=== PATIENT | female | born 1980 | race Caucasian/White ===

== ENCOUNTER 2018-01-13 14:28 | Outpatient (CLI) | payer OTHER ==
--- NOTE | 2018-01-13 16:30 | ULT ---
SONOGRAM RENAL TRANSPLANT WITH DUPLEX EVALUATION: Date: 01/13/18 HISTORY: Renal transplant. Abnormal lab values. FINDINGS: Sonographic evaluation of the transplanted kidney show it to measure 12.3 cm with mild distention of the calices. No evidence of mass or perinephric fluid collection. Good color and spectral Doppler flow within the aorta and renal artery. Peak systolic velocity 1.49 meters/second. Resistive index associated with the arcuate arteries is 0.6. Urinary bladder is incompletely distended, with a volume of 49 mL. IMPRESSION: Normal sonographic appearance of the transplanted kidney. No significant abnormalities are demonstrat ed. POS: [facility]
== END 2018-01-13 14:29 | disposition home or self-care (01) ==
LOC: BICULT 14:28
PROVIDERS: ATTEND Internal Medicine Nephrology
DX: Z48.22 Encounter for aftercare following kidney transplant (principal)
CPT/HCPCS: 76775

== ENCOUNTER 2018-02-02 19:04 | Inpatient (IN) | payer OTHER ==
[2018-02-02] MEDS ORDERED: Pantoprazole 40 MG VIAL ONE (20:10)
[2018-02-02] MEDS ORDERED: Dicyclomine 20 MG TAB ONE (20:10)
[2018-02-02] MEDS ORDERED: Ondansetron PF 4 MG/2 ML Vial ONE (20:10)
[2018-02-02 20:36] LABS: #Basophils 0.1 thou/uL (0.0-0.2); #Eosinphils 0.1 thou/uL (0.0-0.7); #Lymphocytes 1.2 thou/uL (1.20-3.40); #Monocytes 0.5 thou/uL (0.11-0.59); #Neutrophils 7.5 thou/uL (1.40-6.50); %Basophils 0.8 % (0.0-1.0); %Lymphocytes 13.2 % (21.0-51.0); Hemoglobin 9.7 g/dL (12.0-16.0); Mean Corpuscular HGB CONC 33.3 g/dL (32.0-36.0); Mean Corpuscular Hemoglobin 27.5 pg (27.0-31.0); Mean Corpuscular Volume 82.6 fL (78.0-98.0); Mean Platelet Volume 7.6 fL (7.4-10.4); Platelet Count 413 thou/uL (130-400); RBC Distribution Width 11.8 % (11.5-14.5); Red Blood Cell (RBC) Count 3.54 mill/uL (4.20-5.40); White Blood Cell (WBC) Count 9.4 thou/uL (4.8-10.8)
[2018-02-02 20:39] LABS: BHCG - Serum Negative (NEGATIVE); Pregs Control Background? CLEAR/WHITE (CLR/WHITE); Pregs Control Bar Appear? YES (CONTROL BAR)
[2018-02-02 20:55] LABS: ALT (SGPT) Less than 7 U/L (8-55); AST (SGOT) 12 U/L (5-34); Albumin 4.2 g/dL (3.5-5.0); Alkaline Phosphatase 85 U/L (40-150); Anion Gap 16 mmol/L (10-20); BUN (Urea Nitrogen) 21 mg/dL (7.0-18.7); Bilirubin, Total 0.4 mg/dL (0.2-1.2); Calc. Creatinine Clearance 0 mL/min (70-130); Calcium 9.2 mg/dL (7.8-10.44); Carbon Dioxide 17 mmol/L (22-29); Chloride 92 mmol/L (98-107); Estimated GFR-MDRD 17; Globulin 3.1 g/dL (2.4-3.5); Glucose 100 mg/dL (70-105); Potassium 3.1 mmol/L (3.5-5.1); Protein, Total 7.3 g/dL (6.0-8.3); Sodium 122 mmol/L (136-145)
[2018-02-02 21:35] LABS: Bilirubin Negative (Negative); Blood, Urine Trace (Negative); Clarity CLOUDY (Clear); Glucose, Urine (Dipstick) Negative (Negative); Leukocyte Large (Negative); Nitrite Negative (Negative); Protein, Urine (Dipstick) Negative (Neg-Trace); Specific Gravity, Urine 1.006 (1.002-1.036); Urobilinogen 0.2 mg/dL (0.2-1.0); pH, Urine 5.5 (5.0-9.0)
[2018-02-02 21:36] LABS: Bacteria/HPF None Seen HPF (None Seen); Hyaline Casts/LPF 0-3 HYALINE CAST LPF (0-3 Hyaline); Pathc Cast-AUWi Flag 0.14 (0-2.49); Squamous Epithelial 0-3 HPF (0-3); WBC/HPF 21-50 HPF (0-3)
--- NOTE | 2018-02-02 22:25 | CT ---
NONCONTRAST CT ABDOMEN AND PELVIS: 02/02/18 HISTORY: Abdominal pain and chest pain. History of lupus. Patient complains of abdominal distention. COMPARISON: Contrasted study on 11/19/09. FINDINGS: The [place] kidneys are atrophic bilaterally with punctate nonobstructing calculus in the [place] right kidney with associated symmetric bilateral perinephric stranding. There is a transplant kidney seen within the right lower quadrant and right pelvis. No hydronephrosis is seen involving the right pelvi c kidney. The lung bases are clear. There is mild herniation of fat at the posterior right hemidiaphragm. Lack of intravenous contrast limits sensitivity for evaluation of the parenchymal organs. However, th e liver, spleen, pancreas, bilateral adrenals glands, urinary bladder, and uterus demonstrate a gross ly normal nonenhanced CT appearance. The appendix is visualized and filled with gas and increased density material but is normal in calibe r without periappendiceal inflammatory changes present. The thickening involving gastric wall and wal ls of the small bowel have resolved from the prior study in 2009. Osseous structures are intact. IMPRESSION: 1. Grossly normal nonenhanced appearance of a transplant kidney in the right lower quadrant/pelv is without hydronephrosis. Atrophic [place] bilateral kidneys with punctate nonobstructing right nativ e renal calculus. 2. No CT evidence of appendicitis. 3. No acute findings are seen on this nonenhanced CT scan of the abdomen and pelvis. 4. Vascular calcifications in the abdominal aorta. POS: [facility]
[2018-02-02] MEDS ORDERED: cefTRIAXone\\ROCEPHIN 2 GM VIAL ONE (22:33)
[2018-02-03] MEDS ORDERED: Ondansetron PF 4 MG/2 ML Vial IVP PRN (01:07)
[2018-02-03] MEDS: Sodium Chloride 0.9% 1,000 ML IV SCH ×2 (01:10→11:52)
[2018-02-03] MEDS: Nicotine 14 MG PATCH TD SCH ×2 (01:10→21:31)
[2018-02-03] MEDS ORDERED: Potassium Chloride 20 MEQ TAB PO SCH (01:15)
[2018-02-03 01:23] VITALS: BMI 18.4
--- NOTE | 2018-02-03 01:23 | HP ---
DATE OF SERVICE: 02/02/2018 PRIMARY CARE PHYSICIAN: None. CHIEF COMPLAINT: Vomiting and diarrhea. HISTORY OF PRESENT ILLNESS: Ms. Purvis is a pleasant 37-year-old lady who was seen at [facility] on 02/02/2018. She has a history of renal transplant in 2011 in [place], because of lupus. She is followed by Dr. Olson from Nephrology. She reports that over the last month, she has been having nausea, vomiting, and diarrhea. She reports that she is nauseous on a daily basis but vomits a few every 4 days or so. She reports ongoing diarrhea. She reports that the last time, she ate a full meal was towards the end of November. She denies any chest pain. She denies any abdominal pain. She denies any fevers. She came to the emergency room, because of ongoing nausea, vomiting , and diarrhea. REVIEW OF SYSTEMS: All other systems reviewed and found to be negative. PAST MEDICAL HISTORY: Lupus, chronic renal failure, and hypertension. PAST SURGICAL HISTORY: Renal transplant. FAMILY HISTORY: No family history of lupus. SOCIAL HISTORY: Patient smokes half a pack of cigarettes a day. She denies alcohol use or recreational drug use. ALLERGIES: PENICILLIN, she reports hives with PENICILLIN. CURRENT MEDICATIONS: Prograf 3 mg b.i.d., CellCept 500 mg 2 times a day, Zoloft 100 mg daily, pravastatin 10 mg daily, Plaquenil 200 mg 2 times a day, and metoprolol tartrate 12.5 mg 2 times a day. PHYSICAL EXAMINATION: GENERAL: Ms. Purvis is awake and alert, not in acute distress. VITAL SIGNS: Blood pressure is 112/75, pulse 78, respiratory rate 18, and oxygen saturation 99% on room air. She is afebrile. She appears frail, weighs 49 kilograms. EYES: No scleral icterus. No conjunctival pallor. ENT: Dry mucosal membranes, no oropharyngeal erythema or exudates. NECK: Supple, nontender. Trachea is midline. RESPIRATORY: Accessory muscles of breathing are not active. Chest wall movements are symmetric bilaterally. Lungs are clear to auscultation without wheeze, rhonchi, or crepitations. CARDIOVASCULAR: S1 and S2 are heard, regular. Peripheral pulses palpable. No carotid bruit, no pericardial rub. ABDOMEN: Soft, nontender, bowel sounds heard, no hepatomegaly, no splenomegaly. NEUROLOGIC: Cranial nerves II through XII intact. Deep tendon reflexes 2+. MUSCULOSKELETAL: Power is 5/5 in all 4 extremities. SKIN: No rashes or subcutaneous nodules. LYMPHATIC: No cervical lymphadenopathy. PSYCHIATRIC: Normal mood, normal affect, patient is oriented to person, place, and time. DATABASE: Ms. Purvis's labs and investigations were reviewed. She had CT scan of the abdomen and pelvis without contrast, which showed grossly normal nonenhanced appearance of transplanted kidney in the right lower quadrant/ pelvis without hydronephrosis. She had punctate nonobstructing right [place] renal calculus. There was no CT evidence of appendicitis. She has vascular calcifications in the abdominal aorta. She has normal white count, normocytic anemia with hemoglobin 9.7, last known hemoglobin 12.2 on 11/30/2017, elevated platelet count of 413,000, up from 395,000 on 11/30/2017, decreased sodium of 122, decreased potassium of 3.1, decreased carbon dioxide of 17, normal anion gap of 16, elevated blood urea nitrogen of 21, elevated creatinine of 3.01, up from 1.78 on 01/10/2018 and an unremarkable liver profile. Serum test is negative. Urinalysis is positive for blood, large amount of leukocyte esterase, and urine wbcs 21-50 per high power field. ASSESSMENT AND PLAN: Ms. Purvis is a pleasant 37-year-old lady who was seen at [facility] on 02/03/2018. Her problem list includes: 1. Acute on chronic stage 3 renal failure: Ms. Purvis is presenting with acute on chronic, stage 3 renal failure, most likely prerenal given her history of nausea, vomiting, and diarrhea. She will be admitted to the hospital for further management. She will be started on intravenous fluids. Nephrology service will be consulted. 2. Nausea and vomiting: Patient reports that prior to the onset of the symptoms, she and her family members at all suffered some form of flu-like illness with nausea, vomiting, and diarrhea. Other family members recovered, but she has not recovered so far. We will start her on p.r.n. antiemetics. We will consult GI Service for opinion and help with management. 3. Diarrhea: We will send stool studies to rule out infection. I will provide intravenous hydration. 4. Hyponatremia: Etiology unclear, we will provide intravenous fluids and recheck her sodium level. 5. Hypokalemia: Replace potassium and recheck. 6. History of renal transplant: Resume home medications once clarified. 7. Urinary tract infection: Patient has received ceftriaxone in the emergency room, we will continue ceftriaxone and follow urine cultures. LEVEL OF RISK: High. LEVEL OF COMPLEXITY: High. MTDD
[2018-02-03] MEDS ORDERED: Ondansetron ODT 4 MG TAB PO PRN (01:27)
[2018-02-03 05:58] LABS: #Eosinphils 0.1 thou/uL (0.0-0.7); #Lymphocytes 0.8 thou/uL (1.20-3.40); #Monocytes 0.5 thou/uL (0.11-0.59); #Neutrophils 6.2 thou/uL (1.40-6.50); %Basophils 0.2 % (0.0-1.0); %Eosinophils 1.3 % (0.0-10.0); %Monocytes 6.2 % (0.0-10.0); %Neutrophils 81.3 % (42.0-75.0); Hemoglobin 8.3 g/dL (12.0-16.0); Mean Corpuscular HGB CONC 32.9 g/dL (32.0-36.0); Mean Corpuscular Hemoglobin 27.4 pg (27.0-31.0); Mean Platelet Volume 7.5 fL (7.4-10.4); Platelet Count 348 thou/uL (130-400); RBC Distribution Width 11.6 % (11.5-14.5); Red Blood Cell (RBC) Count 3.04 mill/uL (4.20-5.40); White Blood Cell (WBC) Count 7.6 thou/uL (4.8-10.8)
[2018-02-03 06:24] LABS: Anion Gap 12 mmol/L (10-20); BUN (Urea Nitrogen) 17 mg/dL (7.0-18.7); Calc. Creatinine Clearance 24 mL/min (70-130); Calcium 8.4 mg/dL (7.8-10.44); Carbon Dioxide 18 mmol/L (22-29); Chloride 102 mmol/L (98-107); Estimated GFR-MDRD 23; Glucose 95 mg/dL (70-105); Potassium 3.8 mmol/L (3.5-5.1); Sodium 128 mmol/L (136-145)
[2018-02-03] MEDS: Mycophenolate 250 MG CAP PO SCH ×2 (08:43→21:07)
[2018-02-03] MEDS: Hydroxychloroquine Sulfate 200 MG TAB PO SCH (08:43)
[2018-02-03] MEDS: Tacrolimus 1 MG CAP PO SCH ×2 (08:44→21:05)
[2018-02-03] MEDS ORDERED: Prevnar 13-Val Conj/PF 0.5 ML SYRINGE IM ONE (09:00)
[2018-02-03] MEDS ORDERED: Heparin 5,000 UNITS/ML VIAL SC SCH (09:00)
--- NOTE | 2018-02-03 12:01 | CON ---
DATE OF CONSULTATION: 02/03/2018 HISTORY OF PRESENT ILLNESS: Ms. Purvis is a 37-year-old white female with known history of lupus, st atus post living related renal transplant and admitted for nausea and vomiting. She has had signific ant weight loss. She was also found to be in acute kidney injury with a creatinine of 3.0. Empiric volume repletion was done and overnight it improved her creatinine to 2.4. She has been evaluated at the [facility] and I feel that the elevated creatinine is not related to any rejection. The patie nt has also had a BK virus done, which was negative. Furthermore, the renal ultrasound allograft was said to be within normal. REVIEW OF SYSTEMS: Positive for weight loss. Positive for nausea, positive for vomiting. Positive for diarrhea. No abdominal pain, no fever or chills, no allograft tenderness, no hematochezia, no me esvin, no dysuria, no urinary frequency, no shortness of breath, no chest pain. MEDICATIONS: The patient is currently on heparin 5000 units subcu t.i.d., ceftriaxone 1 gram IV suzi y, Plaquenil 200 mg once a day, Toprol-XL 50 mg daily, CellCept 750 mg p.o. b.i.d., Zofran 4 mg p.o. b.i.d., normal saline 100 mL per hour, Prograf 2 mg q.a.m. and 1 mg q.p.m. PAST MEDICAL HISTORY: 1. History of lupus. 2. Status post end-stage renal disease - whether was in maintenance hemodialysis. 3. Hypertension. PAST SURGICAL HISTORY: 1. Status post living related renal transplant. 2. Status post AV fistula placement. 3. Status post cuffed hemodialysis catheter placement. SOCIAL HISTORY: The patient works as a nurse in the PACU. She smokes about half a pack a day. No a lcohol, no IV drug abuse. Status post blood transfusion. Education, nursing school. , lives in [place]. ALLERGIES: PENICILLIN. TRAUMA: None. IMMUNIZATIONS: Up to date. HOSPITALIZATIONS: Please see past medical history. PHYSICAL EXAMINATION: VITAL SIGNS: Blood pressure is noted at 94/53, heart rate 65, respiratory rate 13, temperature 98.2, pulse ox 98%. GENERAL: Noted to be awake, alert, supine, comfortable. SKIN: Decreased turgor. HEENT: She has slightly pale conjunctivae, anicteric sclerae. NECK: No neck mass, no carotid bruits, no JVD. CHEST: No deformities. LUNGS: Clear breath sounds, no wheezing, no crackles. HEART: Normal sinus rhythm. No murmur, no gallops or rubs. ABDOMEN: Globular, soft, nontender. No masses. EXTREMITIES: No edema, no deformities. LABORATORY DATA: Of 02/03/2018, white count 7.6, hemoglobin 8.3, sodium 128, potassium 3.8, chloride 102, carbon dioxide 18, BUN 17, creatinine 2.4, glucose 95, calcium 8.4. On 02/02/2018, BUN 21, creatinine 3.01. On 01/10/2018, BUN 1.78. On 12/16/2017, creatinine was 1.57 . On 07/29/2017, creatinine 1.03. Prograf level of 12/28/2017 was 5.8. IMAGING: CT scan of the abdomen and pelvis shows a grossly normal appearance of the transplanted kid maya, atrophic bilateral kidneys. No CT evidence of appendicitis. No acute abnormality. ASSESSMENT AND PLAN: 1. Acute kidney injury - most likely secondary to hemodynamically mediated renal dysfunction seconda ry to her weight loss and diarrhea as well as decreased p.o. intake. Agree with empiric volume reple tion. Please note, creatinine is already improved from 3.0-2.46. Continue IV fluid. No indication for any dialysis. 2. Status post living related renal transplant, stable. We will continue current immunosuppressive regimen. No changes will be made with her current Prograf or mycophenolate. 3. Chronic diarrhea, GI consult has been done.
--- NOTE | 2018-02-03 18:56 | CON ---
DATE OF CONSULTATION: 02/03/2018 REASON FOR CONSULTATION: Chronic diarrhea and nausea and vomiting. HISTORY OF PRESENT ILLNESS: A 37-year-old known to me from a few years ago when she was treated for disseminated histoplasmosis associated with immunosuppression secondary to systemic lupus erythematosus treatment. The patient has had renal transplant since and has been on immunosuppressive medication and now has a 1 month history of diarrhea, nausea, vomiting with volume depletion. The patient has seen Dr. Mcdonald in the outpatient setting and reportedly had a positive and Norovirus and stool test. She will end up admitted because of persistence of symptoms and decreased renal allograft function. No headaches, no visual symptoms, sore throat, odynophagia, dysphagia , no cough or sputum production or chest pain, no back pain, maybe some abdominal pain, mostly in the epigastric area after eating. No joint symptoms. No skin disorder. 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 PAST SURGICAL HISTORY: Renal transplant. FAMILY HISTORY: Noncontributory. 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 Still smoking half a pack of cigarettes a day. ALLERGIES: PENICILLIN. MEDICATIONS: Ceftriaxone, hydroxychloroquine, mycophenolate, nicotine, ondansetron, sertraline, tacrolimus. PHYSICAL EXAMINATION: VITAL SIGNS: T-max 98.4, blood pressure 116/76, pulse 71, respirations 16, O2 sat 98%. GENERAL: Appears no distress, chronically ill appearing. HEENT: Ocular movements conjugate. Oral cavity moist. NECK: Supple. LUNGS: Clear to auscultation and percussion. HEART: S1, S2, regular rate. ABDOMEN: Soft, not distended or tender. No ascites. No bladder distention. EXTREMITIES: No joint inflammatory activity. NEUROLOGIC: Nonfocal including cognitive function. LABORATORY DATA: White cell count 9.4, hemoglobin 9.7, platelets 413, 80% neutrophils. Sodium 122, creatinine 3.01, potassium 3.1. Liver profile normal. Albumin 4.2. Urinalysis with large leukocyte esterase, negative cultures thus far. Two sets of blood cultures were obtained in October and shows a urine culture negative thus far. C. difficile negative. Campylobacter, Shiga toxin test negative. IMAGING STUDIES: Include abdomen and pelvis CT with grossly normal appearance of the kidney. Punctate nonobstructing calculus in the [place] kidneys, lungs are clear. The other findings were not significant in this noncontrast study. Thickening involving the gastric wall and navarro of the small bowel cleared from prior study. ASSESSMENT: Systemic lupus erythematosus, prior renal transplant and a history of histoplasmosis disseminated in the past and now with chronic diarrhea, nausea , vomiting with norovirus infection documented in the outpatient setting. DISCUSSION: Differential diagnosis includes a chronic norovirus infection which is common in immunosuppressed patients, particularly those with solid organ transplantation. Those may last for months. Alternate possibilities would include associated cytomegalovirus colitis or enteritis or other opportunistic infections. We will submit assays for repeat norovirus testing, PCR, antigen and CMV, DNA, PCR, histoplasma antigen in serum and urine cryptococcus antigen in serum. May need endoscopies. If norovirus is confirmed, then we will try po Nitazoxanide. Otherwise, we will address accordingly to the results of the above assays. MTDD
[2018-02-03] MEDS ORDERED: Loperamide HCl 2 MG CAP PO PRN (18:59)
[2018-02-03] MEDS ORDERED: Zolpidem Tartrate 5 MG TAB PO PRN (18:59)
[2018-02-03] MEDS ORDERED: Calcium Carbonate 500 MG ChewTAB PO PRN (18:59)
[2018-02-03] MEDS ORDERED: HYDROcodone/Acetaminophen 5/325 mg Tablet PO PRN (18:59)
--- NOTE | 2018-02-03 19:06 | PDOC.PN ---
- Subjective Encounter Start Date: 02/03/18 Encounter Start Time: 14:30 Patient seen and examined for AUGUSTO/N/V. Still has diarrhea. No overnight events - Objective Resuscitation Status: Resuscitation Status FULL:Full Resuscitation MAR Reviewed: Yes Vital Signs & Weight: Vital Signs (12 hours) Temp Pulse Resp BP Pulse Ox 02/03/18 16:00 97.2 F L 73 16 128/84 99 02/03/18 12:12 97.8 F 71 16 116/76 98 02/03/18 07:19 98.2 F 65 13 94/53 L 98 Weight Admit Weight 104 lb 6 oz Weight 104 lb 6 oz Result Diagrams: 02/03/18 05:39 02/03/18 05:39 Radiology Reviewed by me: Yes (CT Abd - neg) Phys Exam - Physical Examination Constitutional: NAD Respiratory: no wheezing, no rhonchi Cardiovascular: RRR, no rub Gastrointestinal: soft, non-tender, positive bowel sounds Musculoskeletal: no edema Neurological: moves all 4 limbs Dx/Plan - Plan 1. AUGUSTO on CKD 3/ Dehydration / Met acidosis Cont IVF AM labs 2. N/V/D with recent Norovirus infection Add O&P Await stool w/u 3. h/o Renal transplant Cont immunosuppressants 4. SLE Cont Plaquenil 5. Tob dep Counselled Review of Systems - Review of Systems Respiratory: negative: Cough, Dry, Shortness of Breath, Hemoptysis, SOB with Excertion, Pleuritic Pain, Sputum, Wheezing Cardiovascular: negative: chest pain, palpitations, orthopnea, paroxysmal nocturnal dyspnea, edema, light headedness, other - Medications/Allergies Allergies/Adverse Reactions: Allergies Allergy/AdvReac Type Severity Reaction Status Date / Time Penicillins Allergy Verified 02/02/18 23:29 Medications: Current Medications Acetaminophen (Tylenol) 650 mg PO Q4H PRN PRN Reason: Headache/Fever/Mild Pain (1-3) Hydrocodone Bitart/Acetaminophen ([place] 5/325) 1 tab PO Q4H PRN PRN Reason: Moderate Pain (4-6) Calcium Carbonate (Tums) 1,000 mg PO Q4H PRN PRN Reason: Heartburn or Indigestion Hydroxychloroquine Sulfate (Plaquenil) 200 mg PO DAILY [facility] Last Admin: 02/03/18 08:43 Dose: 200 mg Sodium Chloride (Normal Saline 0.9%) 1,000 mls @ 75 mls/hr IV .[id number] [facility] Last Admin: 02/03/18 11:52 Dose: 1,000 mls Loperamide HCl (Imodium) 2 mg PO PRN PRN PRN Reason: Diarrhea/Loose Stools Mycophenolate Mofetil (Cellcept) 750 mg PO BID [facility] Last Admin: 02/03/18 08:43 Dose: 750 mg Nicotine (Nicoderm Patch) 14 mg TD Q24HR [facility] Last Admin: 02/03/18 01:10 Dose: Not Given Ondansetron HCl (Zofran) 4 mg IVP Q6H PRN PRN Reason: Nausea/Vomiting Last Admin: 02/03/18 08:55 Dose: 4 mg Ondansetron HCl (Zofran Odt) 4 mg PO BID PRN PRN Reason: Nausea Sertraline HCl (Zoloft) 100 mg PO DAILY [facility] Last Admin: 02/03/18 08:43 Dose: 100 mg Tacrolimus (Prograf) 1 mg PO QPM [facility] Tacrolimus (Prograf) 2 mg PO QAM [facility] Last Admin: 02/03/18 08:44 Dose: 2 mg Zolpidem Tartrate (Ambien) 5 mg PO HSPRN PRN PRN Reason: Insomnia
--- NOTE | 2018-02-03 21:23 | CON ---
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 This all started in November when she went on a trip to [place] and had problems with nausea, vomiting, and diarrhea. Several of the people on a trip also experienced the same symptoms and they came home and actually some of the people in the ousehold developed the symptoms as well. Other family members symptoms resolved quickly. However, p ersisted for maybe a week or so and seemed to get better. However, in December, she started develop ing the same symptoms. She denies a lot of abdominal pain other than some generalized crampy discomf ort. She has had diarrhea which has had some mucus in it. No blood. Seems to be bowel in color to brown. Her emesis is mild in nature. She also experiences some swallowing difficulty. She reports she ate a steak the other day and it seemed to hang up in her esophagus. She has undergone an upper endoscopy by Dr. Mcdonald in the past which was normal. One done by Dr. Mcdonald in 2004 showed erosive es ophagitis involving the mid esophagus which was biopsied. Biopsies in the past have been negative. In 2004, biopsies showed acute ulcerative esophagitis. She was recently seen by Dr. Ada Garcia in the clinic. Those records are not presently available. She had stool studies performed and showe d a viral gastroenteritis. PAST MEDICAL HISTORY: Includes. 1. Lupus, end-stage renal disease on hemodialysis and then underwent a renal transplant and is no lo nger on dialysis. 2. Hypertension. PAST MEDICAL HISTORY: Renal transplant. MEDICATIONS: Include Zoloft 100 mg p.o. daily, Zofran 4 mg p.o. b.i.d. p.r.n., CellCept 750 mg p.o. b.i.d., metoprolol 50 mg p.o. at bedtime, Prograf 1 mg p.o. q.p.m. and 2 mg p.o. q.a.m., Plaquenil 20 0 mg p.o. daily. ALLERGIES: PENICILLIN. SOCIAL HISTORY: She does smoke occasionally. Does not drink, but rarely. FAMILY HISTORY: Negative for GI or liver disease. REVIEW OF SYSTEMS: CONSTITUTIONAL: No fever or chills. No weight loss. Positive for 10-pound weight loss. EYES: No blurred vision or double vision. ENT: No sore throat or earaches. CARDIOVASCULAR: No chest pain or palpitation. PULMONARY: No shortness of breath, cough or wheezing. GASTROINTESTINAL: See above. : No hematuria or dysuria. MUSCULOSKELETAL: No joint pain or muscle weakness. SKIN: No rashes. NEUROLOGIC: No numbness or seizure activity. PHYSICAL EXAMINATION: GENERAL: Shows a thin white female in no acute distress. VITAL SIGNS: Temperature 97.8, pulse 71, respiratory rate 16, blood pressure 116/76. HEENT: Unremarkable. NECK: Supple. CHEST: Clear. CARDIOVASCULAR: Regular rate and rhythm. ABDOMEN: Soft, nontender, without organomegaly or masses. Bowel sounds are present and normoactive. EXTREMITIES: Normal. NEUROLOGIC: Nonfocal. LABORATORY DATA: On admission shows a white blood cell count 9.4, hemoglobin 9.7, hematocrit 29.2, p latelet count 413. Chemistry shows sodium 122, potassium 3.1, chloride 92, CO2 17, BUN 21, creatinin e 3.01. Serum is negative. Urinalysis shows trace blood, large leukocyte esterase and 21- 50 WBCs. Stool for C. diff, Shigella, Campylobacter were all negative. Stool culture was negative. Abdominal and pelvic CT showed grossly normal nonenhanced appearance of the transplanted kidney. ASSESSMENT: 1. Nausea and vomiting - chronic, going on for quite some time. This is probably the reason the pat ient has dehydration and electrolyte abnormalities because she cannot keep up with fluid losses. 2. Chronic diarrhea - patient is immunocompromised and may have some atypical infection. 3. Lupus. 4. Status post renal transplant. 5. Hyponatremia and hypokalemia. RECOMMENDATIONS: 1. Stool for ova and parasites. 2. Stool for leukocytes. 3. EGD in a.m. 4. PPI. 5. Round the clock Zofran or Phenergan.
[2018-02-03] MEDS ORDERED: cefTRIAXone\\ROCEPHIN 1 GM in Sodium Chloride 0.9% 100 ML IVPB SCH (23:00)
[2018-02-04] MEDS: Sodium Chloride 0.9% 1,000 ML IV SCH ×2 (00:28→14:33)
[2018-02-04 04:59] LABS: #Eosinphils 0.1 thou/uL (0.0-0.7); #Lymphocytes 1.1 thou/uL (1.20-3.40); #Monocytes 0.4 thou/uL (0.11-0.59); #Neutrophils 5.9 thou/uL (1.40-6.50); %Basophils 0.4 % (0.0-1.0); %Lymphocytes 14.2 % (21.0-51.0); %Neutrophils 78.5 % (42.0-75.0); Hemoglobin 8.4 g/dL (12.0-16.0); Mean Corpuscular HGB CONC 32.9 g/dL (32.0-36.0); Mean Corpuscular Hemoglobin 27.4 pg (27.0-31.0); Mean Corpuscular Volume 83.4 fL (78.0-98.0); Mean Platelet Volume 7.8 fL (7.4-10.4); Platelet Count 369 thou/uL (130-400); Red Blood Cell (RBC) Count 3.06 mill/uL (4.20-5.40); White Blood Cell (WBC) Count 7.5 thou/uL (4.8-10.8)
[2018-02-04 05:09] LABS: Anion Gap 11 mmol/L (10-20); BUN (Urea Nitrogen) 11 mg/dL (7.0-18.7); Calc. Creatinine Clearance 31 mL/min (70-130); Calcium 8.6 mg/dL (7.8-10.44); Carbon Dioxide 16 mmol/L (22-29); Chloride 108 mmol/L (98-107); Estimated GFR-MDRD 31; Glucose 91 mg/dL (70-105); Potassium 3.6 mmol/L (3.5-5.1); Sodium 131 mmol/L (136-145)
[2018-02-04 05:19] LABS: Magnesium 0.9 mg/dL (1.6-2.6)
[2018-02-04] MEDS ORDERED: Magnesium 2 GM/50 ML 2 GM in Premix Bag 1 BAG IVPB SCH ×3 (05:45→14:00)
[2018-02-04] MEDS ORDERED: Midazolam HCl 2 mg/2 ml Vial ONE (07:42)
[2018-02-04] MEDS ORDERED: Benzocaine 20% Spray 60 ML CAN ONE (07:46)
[2018-02-04] MEDS ORDERED: Ondansetron HCl/PF 4 MG/2 ML Vial IVP PRN (08:55)
[2018-02-04] MEDS ORDERED: Promethazine HCl 25 MG/ML VIAL SLOW IVP PRN (08:55)
[2018-02-04] MEDS ORDERED: Promethazine HCl 25 MG/ML VIAL IM PRN (08:55)
--- NOTE | 2018-02-04 09:00 | OP ---
DATE OF PROCEDURE: 02/04/2018 PREOPERATIVE DIAGNOSIS: Persistent nausea and vomiting. DESCRIPTION OF PROCEDURE: After informed consent was obtained, the patient placed in the left latera l decubitus position. Anesthesia was administered per the Anesthesia Department. Forward-viewing en doscope was inserted into the esophagus under direct visualization with ease and passed to the second portion of the duodenum with ease. The second portion of the duodenum was normal. Duodenal bulb wa s normal. Random biopsies were taken from the second portion of the duodenum because of the patient' s persistent diarrhea. The pylorus was normal. In the prepyloric antrum, a few erosions were noted and biopsies were taken. Retroflexion in the stomach was normal. The esophagus was normal throughou t. A 54-[place] Dos Santos dilator was passed with some moderate resistance. Reinsertion showed some mi ld post-dilatation bleeding at GE junction. ASSESSMENT: 1. Esophageal stricture - status post dilatation. 2. Mild erosive antritis - status post biopsy. RECOMMENDATIONS: 1. Await histopathology. 2. Proceed with colonoscopy.
[2018-02-04] MEDS: Hydroxychloroquine Sulfate 200 MG TAB PO SCH (09:43)
[2018-02-04] MEDS: Tacrolimus 1 MG CAP PO SCH ×2 (09:43→20:40)
[2018-02-04] MEDS: Mycophenolate 250 MG CAP PO SCH ×2 (10:40→20:40)
[2018-02-04] MEDS ORDERED: PROPOFOL 200 MG/20 ML VIAL ONE (13:53)
--- NOTE | 2018-02-04 16:06 | PDOC.PN ---
- Subjective Encounter Start Date: 02/04/18 Encounter Start Time: 10:30 Patient seen and examined for AUGUSTO/N/V. No new complaints. No overnight events - Objective Resuscitation Status: Resuscitation Status FULL:Full Resuscitation MAR Reviewed: Yes Vital Signs & Weight: Vital Signs (12 hours) Temp Pulse Resp BP Pulse Ox 02/04/18 11:41 98.1 F 64 18 117/67 100 02/04/18 09:59 100 02/04/18 09:30 97.6 F 76 16 114/74 100 02/04/18 07:10 98.2 F 69 16 113/58 L 98 02/04/18 05:37 98.4 F 68 18 119/72 96 Weight Admit Weight 104 lb 6 oz Weight 104 lb 6 oz Result Diagrams: 02/04/18 04:25 02/04/18 04:25 Phys Exam - Physical Examination Constitutional: NAD Respiratory: no wheezing, no rhonchi Cardiovascular: RRR, no rub Gastrointestinal: soft, non-tender, positive bowel sounds Musculoskeletal: no edema Neurological: moves all 4 limbs Dx/Plan - Plan DVT proph w/SCDs 1. AUGUSTO on CKD 3/ Dehydration / Met acidosis - Cr improving Cont IVF AM labs 2. N/V/D with recent Norovirus infection Stool w/u neg s/p EGD Colonoscopy in AM Other testing pending 3. h/o Renal transplant Cont immunosuppressants 4. SLE Cont Plaquenil 5. Hypomagnessemia 4 gm IVPB Magnessium x 1 6. Tob dep Counselled 7. HTN Cont Toprol Laboratory Tests 02/02/18 02/03/18 02/04/18 20:22 05:39 04:25 Sodium 131 L Creatinine 3.01 H 2.40 H 1.81 H Magnesium 0.9 L* Review of Systems - Review of Systems Respiratory: negative: Cough, Dry, Shortness of Breath, Hemoptysis, SOB with Excertion, Pleuritic Pain, Sputum, Wheezing Cardiovascular: negative: chest pain, palpitations, orthopnea, paroxysmal nocturnal dyspnea, edema, light headedness, other - Medications/Allergies Allergies/Adverse Reactions: Allergies Allergy/AdvReac Type Severity Reaction Status Date / Time Penicillins Allergy Verified 02/02/18 23:29 Medications: Current Medications Acetaminophen (Tylenol) 650 mg PO Q4H PRN PRN Reason: Headache/Fever/Mild Pain (1-3) Hydrocodone Bitart/Acetaminophen ([place] 5/325) 1 tab PO Q4H PRN PRN Reason: Moderate Pain (4-6) Calcium Carbonate (Tums) 1,000 mg PO Q4H PRN PRN Reason: Heartburn or Indigestion Hydroxychloroquine Sulfate (Plaquenil) 200 mg PO DAILY [facility] Last Admin: 02/04/18 09:43 Dose: 200 mg Sodium Chloride (Normal Saline 0.9%) 1,000 mls @ 75 mls/hr IV .[id number] [facility] Last Admin: 02/04/18 14:33 Dose: 1,000 mls Loperamide HCl (Imodium) 2 mg PO PRN PRN PRN Reason: Diarrhea/Loose Stools Metoprolol Succinate (Toprol Xl) 50 mg PO HS [facility] Last Admin: 02/03/18 21:04 Dose: 50 mg Mycophenolate Mofetil (Cellcept) 750 mg PO BID [facility] Last Admin: 02/04/18 10:40 Dose: 750 mg Nicotine (Nicoderm Patch) 14 mg TD Q24HR [facility] Last Admin: 02/03/18 21:31 Dose: Not Given Ondansetron HCl (Zofran Odt) 4 mg PO BID PRN PRN Reason: Nausea Polyethylene Glycol/Electrolytes (Golytely) 4,000 ml PO 1800 [facility] Stop: 02/04/18 23:59 Sertraline HCl (Zoloft) 100 mg PO DAILY [facility] Last Admin: 02/04/18 09:43 Dose: 100 mg Tacrolimus (Prograf) 1 mg PO QPM [facility] Last Admin: 02/03/18 21:05 Dose: 1 mg Tacrolimus (Prograf) 2 mg PO QAM [facility] Last Admin: 02/04/18 09:43 Dose: 2 mg Zolpidem Tartrate (Ambien) 5 mg PO HSPRN PRN PRN Reason: Insomnia
[2018-02-04] MEDS ORDERED: GoLYTELY 4,000 ml Bottle PO SCH (18:00)
[2018-02-04] MEDS: Nicotine 14 MG PATCH TD SCH (20:42)
[2018-02-05 05:44] LABS: #Eosinphils 0.1 thou/uL (0.0-0.7); #Lymphocytes 1.3 thou/uL (1.20-3.40); #Monocytes 0.4 thou/uL (0.11-0.59); #Neutrophils 4.2 thou/uL (1.40-6.50); %Basophils 0.5 % (0.0-1.0); %Lymphocytes 21.2 % (21.0-51.0); %Monocytes 6.9 % (0.0-10.0); %Neutrophils 69.5 % (42.0-75.0); Hemoglobin 7.6 g/dL (12.0-16.0); Mean Corpuscular HGB CONC 32.7 g/dL (32.0-36.0); Mean Corpuscular Hemoglobin 27.3 pg (27.0-31.0); Mean Corpuscular Volume 83.3 fL (78.0-98.0); Mean Platelet Volume 8.3 fL (7.4-10.4); Platelet Count 347 thou/uL (130-400); RBC Distribution Width 11.8 % (11.5-14.5); White Blood Cell (WBC) Count 6.1 thou/uL (4.8-10.8)
[2018-02-05 06:05] LABS: Anion Gap 10 mmol/L (10-20); BUN (Urea Nitrogen) 6 mg/dL (7.0-18.7); Calc. Creatinine Clearance 45 mL/min (70-130); Calcium 8.7 mg/dL (7.8-10.44); Carbon Dioxide 20 mmol/L (22-29); Chloride 104 mmol/L (98-107); Estimated GFR-MDRD 47; Glucose 88 mg/dL (70-105); Magnesium 1.7 mg/dL (1.6-2.6); Phosphorus 2.5 mg/dL (2.3-4.7); Sodium 131 mmol/L (136-145)
[2018-02-05 06:10] LABS: Potassium 2.9 mmol/L (3.5-5.1)
[2018-02-05] MEDS ORDERED: NS 0.9% w/ 40 MEQ KCL 1,000 ML IV SCH ×2 (06:30→10:03)
[2018-02-05] MEDS ORDERED: Midazolam HCl 2 mg/2 ml Vial ONE (08:03)
--- NOTE | 2018-02-05 09:05 | OP ---
PREOPERATIVE DIAGNOSES: 1. Chronic diarrhea 2. Anemia. DESCRIPTION OF PROCEDURE: After informed consent was obtained, the patient was placed in the left la teral decubitus position. Anesthesia was administered per the Anesthesia Department. Forward-viewin g endoscope was inserted into the rectum after perianal inspection and rectal exam were normal and pa ssed to the cecum with ease. Cecum, ileocecal valve, and appendiceal orifice were normal. The prep was excellent. The cecum, ascending, transverse, descending, sigmoid and rectum were all normal. Re troflexion in the rectum was normal. Random biopsies were taken throughout the colon for microscopic colitis. ASSESSMENT: Normal ileal colonoscopy - status post random biopsies of the colon. RECOMMENDATIONS: 1. Trial of Imodium. 2. Await histopathology. 3. Consider adjustment of CellCept dose.
[2018-02-05] MEDS: Potassium Chloride 20 MEQ in Premix Bag 1 BAG IVPB SCH ×2 (09:14→11:47)
[2018-02-05] MEDS: Tacrolimus 1 MG CAP PO SCH ×2 (09:15→20:45)
[2018-02-05] MEDS: Hydroxychloroquine Sulfate 200 MG TAB PO SCH (09:15)
[2018-02-05] MEDS: Loperamide HCl 2 MG CAP PO SCH (09:20)
[2018-02-05] MEDS ORDERED: Potassium Chloride 10 MEQ TAB PO SCH ×2 (10:30→12:00)
[2018-02-05] MEDS ORDERED: Mycophenolate 250 MG CAP PO SCH (11:00)
[2018-02-05] MEDS: NS 0.9% w/ 20 MEQ KCL 1,000 ML/1,000 ML BAG IV SCH (11:06)
[2018-02-05] MEDS: Mycophenolate 250 MG CAP PO SCH ×2 (11:48→20:44)
--- NOTE | 2018-02-05 12:00 | PRG ---
DATE OF SERVICE: 02/05/2018 RENAL MEDICINE SUBJECTIVE: Ms. Purvis is a 37-year-old white female who was admitted for weight loss, nausea and vo miting as well as diarrhea. She has been evaluated by GI. She has undergone an upper and lower GI e ndoscopy. GI endoscopy did show some esophageal stricture and dilatation was done. She also had mil d erosive antritis. Furthermore, the colonoscopy was within normal. We are currently following this patient for her acute kidney injury that was hemodynamically mediated . She was also status post renal transplant. No new complaints today. She was noted to be hypokale gómez and potassium is being replaced. Due to the negative findings of colonoscopy, we will be decreas ing her CellCept to 500 mg b.i.d. to improve the diarrhea. No complaints of chest pain, shortness of breath. OBJECTIVE: VITAL SIGNS: Blood pressure 110/72, heart rate 58, respiratory rate 16, temperature 97.6, pulse ox 9 6%. GENERAL: Noted to be awake, alert, comfortable, not in distress. SKIN: Adequate turgor. HEENT: Slightly pale conjunctivae, anicteric sclerae. NECK: No neck mass, no carotid bruits, no JVD. CHEST: No deformities. LUNGS: Clear breath sounds. No wheezing or crackles. HEART: Normal sinus rhythm. No murmurs, no gallops, no rubs. ABDOMEN: Globular, soft, nontender, no masses. EXTREMITIES: No edema, no deformities. MEDICATIONS: Medications of 02/05/2018 was reviewed. LABORATORY DATA: Laboratories of 02/05/2018; white count 6.1, hemoglobin 7.6, hematocrit 23.3. [place] um 131, potassium 2.9, chloride 104, carbon dioxide 20, BUN 6, creatinine 1.28, glucose 88, calcium 8 .7, magnesium is 1.7. ASSESSMENT AND PLAN: 1. Acute kidney injury - hemodynamically mediated renal dysfunction. Much improved with volume repl etion. 2. Status post - living related renal transplant, stable. We will continue current immunosuppressiv e regimen except for the CellCept. We will decrease it from 720 twice a day to 500 mg b.i.d. due to diarrhea and possible CellCept induced anemia. 3. Hypomagnesemia, much improved. Most recent magnesium is 1.7. 4. Nausea and vomiting/diarrhea clinically improved. Status post endoscopy. GI following. Recheck base met and CBC in a.m.
[2018-02-05] MEDS: Potassium Chloride 10 MEQ TAB PO SCH ×2 (13:05→16:56)
[2018-02-05] MEDS: Acetaminophen 325 MG TAB PO PRN ×2 (15:03→21:39)
[2018-02-05] MEDS ORDERED: PROPOFOL 200 MG/20 ML VIAL ONE (15:07)
--- NOTE | 2018-02-05 19:12 | PDOC.PN ---
- Subjective Encounter Start Date: 02/05/18 Encounter Start Time: 11:30 Patient seen and examined fot AUGUSTO/diarrhea. Feels better. No new complaints. No overnight events - Objective Resuscitation Status: Resuscitation Status FULL:Full Resuscitation MAR Reviewed: Yes Vital Signs & Weight: Vital Signs (12 hours) Temp Pulse Resp BP Pulse Ox 02/05/18 16:34 98.6 F 74 18 134/87 98 02/05/18 11:39 97.8 F 67 18 115/71 100 02/05/18 09:14 97.6 F 58 L 16 110/72 96 02/05/18 07:10 98.2 F 71 16 118/75 97 Weight Admit Weight 104 lb 6 oz Weight 104 lb 6 oz I&O: 02/04/18 02/05/18 02/06/18 06:59 06:59 06:59 Intake Total 1045 1835 Balance 1045 1835 Result Diagrams: 02/05/18 03:58 02/05/18 03:58 Phys Exam - Physical Examination Constitutional: NAD Respiratory: no wheezing, no rhonchi Cardiovascular: RRR, no rub Gastrointestinal: soft, non-tender, positive bowel sounds Musculoskeletal: no edema Dx/Plan - Plan DVT proph w/SCDs 1. AUGUSTO on CKD 3/ Dehydration / Met acidosis - improving Cont IVF AM labs 2. N/V/D with recent Norovirus infection Stool w/u neg s/p EGD/Colonoscopy Other testing pending 3. h/o Renal transplant Cont immunosuppressants - Cellcept dose reduced 4. SLE Cont Plaquenil 5. Hypomagnessemia/Jypokalemia Replace Potassium 6. Tob dep Counselled 7. HTN Cont Toprol XL Review of Systems - Review of Systems Respiratory: negative: Cough, Dry, Shortness of Breath, Hemoptysis, SOB with Excertion, Pleuritic Pain, Sputum, Wheezing Cardiovascular: negative: chest pain, palpitations, orthopnea, paroxysmal nocturnal dyspnea, edema, light headedness, other - Medications/Allergies Allergies/Adverse Reactions: Allergies Allergy/AdvReac Type Severity Reaction Status Date / Time Penicillins Allergy Verified 02/02/18 23:29 Medications: Current Medications Acetaminophen (Tylenol) 650 mg PO Q4H PRN PRN Reason: Headache/Fever/Mild Pain (1-3) Last Admin: 02/05/18 15:03 Dose: 650 mg Hydrocodone Bitart/Acetaminophen ([place] 5/325) 1 tab PO Q4H PRN PRN Reason: Moderate Pain (4-6) Calcium Carbonate (Tums) 1,000 mg PO Q4H PRN PRN Reason: Heartburn or Indigestion Hydroxychloroquine Sulfate (Plaquenil) 200 mg PO DAILY [facility] Last Admin: 02/05/18 09:15 Dose: 200 mg Potassium Chloride/Sodium Chloride (Ns 0.9% W/ 20 Meq Kcl) 1,000 ml in 1,000 mls @ 50 mls/hr IV .Q20H [facility] Last Admin: 02/05/18 11:06 Dose: 1,000 mls Loperamide HCl (Imodium) 2 mg PO PRN PRN PRN Reason: Diarrhea/Loose Stools Loperamide HCl (Imodium) 2 mg PO DAILY [facility] Last Admin: 02/05/18 09:20 Dose: 2 mg Metoprolol Succinate (Toprol Xl) 50 mg PO HS [facility] Last Admin: 02/04/18 20:40 Dose: 50 mg Mycophenolate Mofetil (Cellcept) 500 mg PO BID [facility] Nicotine (Nicoderm Patch) 14 mg TD Q24HR [facility] Last Admin: 02/04/18 20:42 Dose: Not Given Ondansetron HCl (Zofran Odt) 4 mg PO BID PRN PRN Reason: Nausea Last Admin: 02/04/18 18:08 Dose: 4 mg Sertraline HCl (Zoloft) 100 mg PO DAILY [facility] Last Admin: 02/05/18 09:15 Dose: 100 mg Tacrolimus (Prograf) 1 mg PO QPM [facility] Last Admin: 02/04/18 20:40 Dose: 1 mg Tacrolimus (Prograf) 2 mg PO QAM [facility] Last Admin: 02/05/18 09:15 Dose: 2 mg Zolpidem Tartrate (Ambien) 5 mg PO HSPRN PRN PRN Reason: Insomnia
[2018-02-06 04:15] VITALS: BP 122/75
[2018-02-06 05:29] LABS: #Eosinphils 0.2 thou/uL (0.0-0.7); #Lymphocytes 1.4 thou/uL (1.20-3.40); #Monocytes 0.4 thou/uL (0.11-0.59); #Neutrophils 4.5 thou/uL (1.40-6.50); %Basophils 0.8 % (0.0-1.0); %Eosinophils 2.9 % (0.0-10.0); %Lymphocytes 21.2 % (21.0-51.0); %Monocytes 5.5 % (0.0-10.0); %Neutrophils 69.7 % (42.0-75.0); Hemoglobin 7.9 g/dL (12.0-16.0); Mean Corpuscular HGB CONC 31.7 g/dL (32.0-36.0); Mean Corpuscular Hemoglobin 26.8 pg (27.0-31.0); Mean Corpuscular Volume 84.5 fL (78.0-98.0); Mean Platelet Volume 7.7 fL (7.4-10.4); Platelet Count 362 thou/uL (130-400); RBC Distribution Width 11.9 % (11.5-14.5); Red Blood Cell (RBC) Count 2.94 mill/uL (4.20-5.40); White Blood Cell (WBC) Count 6.4 thou/uL (4.8-10.8)
[2018-02-06] MEDS: NS 0.9% w/ 20 MEQ KCL 1,000 ML/1,000 ML BAG IV SCH (05:38)
[2018-02-06] MEDS: Nicotine 14 MG PATCH TD SCH (05:41)
[2018-02-06 05:51] LABS: Anion Gap 7 mmol/L (10-20); BUN (Urea Nitrogen) 6 mg/dL (7.0-18.7); Calc. Creatinine Clearance 41 mL/min (70-130); Calcium 9.2 mg/dL (7.8-10.44); Carbon Dioxide 23 mmol/L (22-29); Chloride 107 mmol/L (98-107); Estimated GFR-MDRD 42; Glucose 84 mg/dL (70-105); Magnesium 1.2 mg/dL (1.6-2.6); Phosphorus 3.4 mg/dL (2.3-4.7); Sodium 133 mmol/L (136-145)
[2018-02-06] MEDS: Mycophenolate 250 MG CAP PO SCH (08:15)
[2018-02-06] MEDS: Hydroxychloroquine Sulfate 200 MG TAB PO SCH (08:15)
[2018-02-06] MEDS: Loperamide HCl 2 MG CAP PO SCH (08:15)
[2018-02-06 08:41] VITALS: TEMP 97.8
[2018-02-06] MEDS ORDERED: Magnesium Sulfate 3 GM in Sodium Chloride 0.9% 100 ML IVPB SCH (08:45)
[2018-02-06] MEDS: Tacrolimus 1 MG CAP PO SCH (09:01)
--- NOTE | 2018-02-06 09:42 | PRG ---
DATE OF SERVICE: 02/06/2018 SUBJECTIVE: Ms. Purvis is a 37-year-old white female admitted for nausea, vomiting and volume depletion. She was given IV volume repletion. She was noted to be in acute kidney injury secondary to a hemodynamically mediated renal dysfunction. Renal function improved with IV hydration. She is also status post living related renal transplant. Due to the diarrhea, negative findings on colonoscopy we adjusted her CellCept down to 500 mg tab b.i.d. She tells me she is improving with her p.o. intake. Denies any new complaints. OBJECTIVE: VITAL SIGNS: Blood pressure 122/75, heart rate 64, respiratory rate 18, temperature 97.8, pulse ox 98%. GENERAL: Noted to be awake, alert, supine, comfortable, not in distress. SKIN: Adequate turgor. HEENT: Pinkish conjunctivae, anicteric sclerae. NECK: No neck mass, no carotid bruits, no JVD. CHEST: No deformities. LUNGS: Clear breath sounds. HEART: Normal sinus rhythm. No murmur, no gallops, no rubs. ABDOMEN: Globular, soft, nontender, no masses. EXTREMITIES: No edema, no deformities. MEDICATIONS: 02/06/2018 - Reviewed. LABORATORY: 02/06/2018 - White count 6.4, hemoglobin 7.9. Sodium 133, potassium 4, chloride 107, carbon dioxide 23, BUN 6, creatinine 1.4, calcium 9.2 , phosphorus is 3.4, magnesium 1.2. ASSESSMENT AND PLAN: 1. Status post living related renal transplant for treating creatinine. Creatinine 1.4, slightly higher from yesterday of 1.28. Again, I encouraged the patient to continue to increase her p.o. intake. Continue current immunosuppressive regimen. Please note she is on decreased dose of CellCept. 2. Hypertension - my bias due to the recent hypotensive episode is to decrease the Toprol from 50 to 25 mg XL tab once a day. 3. Hypokalemia, resolved. 4. Hypomagnesemia. Magnesium oxide 400 mg tab daily. 5. Anemia - stable. Most likely related to the CellCept. She is on decreased dose of CellCept. MTDD
--- NOTE | 2018-02-06 11:49 | PRG ---
DATE OF SERVICE: 02/06/2018 SUBJECTIVE: The patient is feeling much better. She is ready to go home. She has had one formed chloe wel movement yesterday. She is having no further nausea and vomiting. OBJECTIVE: VITAL SIGNS: Temperature 97.8, pulse 64, respiratory 18, blood pressure 122/75. CHEST: Clear. CARDIOVASCULAR: Regular rate and rhythm. ABDOMEN: Soft, nontender, without organomegaly or masses. Bowel sounds are present and normoactive. RECTAL: Deferred. LABORATORY DATA: Shows a sodium 133, creatinine 1.40, hemoglobin 7.9, hematocrit 24.9. ASSESSMENT: 1. Chronic diarrhea - may be secondary to medications. 2. Nausea and vomiting - resolved. 3. Lupus. 4. Status post renal transplant. RECOMMENDATIONS: 1. Stable for discharge from a GI standpoint. 2. Agree with decreased CellCept dose.
[2018-02-06 15:21] LABS: Tacrolimus 8.7 ng/mL (2.0-20.0)
[2018-02-06] MEDS ORDERED: Cipro 250 MG TAB PO SCH ×2 (15:30→20:00)
[2018-02-07] MEDS ORDERED: Magnesium Oxide 250 MG TAB PO SCH (09:00)
--- NOTE | 2018-02-07 10:35 | DIS ---
DATE OF DISCHARGE: 02/06/2018 DISCHARGE DISPOSITION: Home. FOLLOWUP: Follow up with primary care physician in one week. Please note that the patient does not have a primary care physician. She follows with Dr. Olson. Follow up with Dr. Kendall Armendariz in 1-2 weeks . ALLERGIES: The patient is allergic to PENICILLIN. The patient was seen on the day of discharge, denies any new complaints, no chest pain, shortness of breath or palpitations. DISCHARGE MEDICATIONS: 1. Toprol-XL dose was reduced to 25 mg daily. 2. CellCept dose was reduced to 500 mg b.i.d. New medications were ciprofloxacin 250 mg twice a day for 5 days for urinary tract infection, Nystat in swish and swallow for oral thrush. All other home medications were left, unchanged. BRIEF HOSPITAL COURSE: The patient is a 37-year-old female with a renal transplant, currently on imm unosuppressive therapy, presented to the hospital with intractable nausea and vomiting as well as magan rrhea. Please refer to the history and physical for further details. The patient was admitted to the medical floor with the above diagnosis. She was found to have acute kidney injury with a creatinine of 3.01. She was started on IV fluids. Her immunosuppressive therap y was resumed. She also had sodium of 122 on admission. A stool workup was essentially negative. T he patient was seen by multiple consultants including Nephrology, Dr. Olson; Gastroenterology, Dr. Eden Armendariz as well as Infectious Disease, Dr. Sanchez. A CT scan of the abdomen and pelvis without contras t prior to this hospitalization was essentially negative. Cryptococcal antigen was negative as well. CMV PCR, Histoplasma PCR and norovirus PCR has been sent by Dr. Sanchez. These tests are pending at this time. Primary care physician advised to follow. She has been started on daily, Imodium. She a lso had EGD and colonoscopy this hospitalization. INPATIENT PROCEDURES: On the patient underwent EGD that showed esophageal stricture, statu s post dilatation with mild erosive antritis. On 02/05/2018 the patient underwent colonoscopy that was essentially normal. Random biopsies were ob tained. Imodium has been started. FINAL DIAGNOSES: 1. Acute kidney injury on chronic kidney disease stage 3, secondary to dehydration, improved. 2. Nausea, vomiting, diarrhea with recent norovirus infection. A stool workup was essentially negat vivek. She underwent EGD and colonoscopy. Histoplasma, norovirus and CMV tests pending at this time. Primary care physician advised to follow. 3. History of renal transplant, CellCept dose was reduced. 4. Systemic lupus erythematosus. 5. Hypomagnesemia, replaced. 6. Hypokalemia, replaced. 7. Tobacco dependence. The patient was counseled. 8. Urinary tract infection. 9. Hypertension. Toprol dose was reduced. Plan of care was discussed with the patient in detail. She stated understanding.
[2018-02-08 14:23] LABS: Norovirus GI Negative (Negative); Norovirus GII Positive (Negative)
[2018-02-08 14:23] LABS: CMV DNA-PCR Test Negative (Negative)
== END 2018-02-06 16:27 | disposition home or self-care (01) | DRG 683 ==
LOC: ERS 19:04 → T4-B 22:50
PROVIDERS: ADMIT Internal Medicine; ATTEND Internal Medicine
PROC: 0DB98ZX Excision of Duodenum, Via Natural or Artificial Opening Endoscopic, Diagnostic (ICD-10-PCS; 2018-02-04)
PROC: 0DB78ZX Excision of Stomach, Pylorus, Via Natural or Artificial Opening Endoscopic, Diagnostic (ICD-10-PCS; 2018-02-04)
PROC: 0D758ZZ Dilation of Esophagus, Via Natural or Artificial Opening Endoscopic (ICD-10-PCS; 2018-02-04)
PROC: 0DBE8ZX Excision of Large Intestine, Via Natural or Artificial Opening Endoscopic, Diagnostic (ICD-10-PCS; principal; 2018-02-05)
DX: N17.9 Acute kidney failure, unspecified (principal); Z94.0 Kidney transplant status; E87.1 Hypo-osmolality and hyponatremia; N39.0 Urinary tract infection, site not specified; E87.2 Acidosis; B37.0 Candidal stomatitis; I12.9 Hypertensive chronic kidney disease with stage 1 through stage 4 chronic kidney disease, or unspecified chronic kidney disease; F17.210 Nicotine dependence, cigarettes, uncomplicated; N18.3 Chronic kidney disease, stage 3 (moderate); R11.2 Nausea with vomiting, unspecified; E87.6 Hypokalemia; D64.9 Anemia, unspecified; K25.9 Gastric ulcer, unspecified as acute or chronic, without hemorrhage or perforation; K22.2 Esophageal obstruction; E86.0 Dehydration; M32.9 Systemic lupus erythematosus, unspecified; E83.42 Hypomagnesemia; K52.9 Noninfective gastroenteritis and colitis, unspecified; Z88.0 Allergy status to penicillin
CPT/HCPCS: 36415; 74176; 80048; 80053; 80197; 81003; 81015; 83630; 83735; 84100; 84703; 85025; 87045; 87046; 87086; 87324; 87328; 87329; 87385; 87449; 87497; 87798; 87899; 88305; 88312; 90471; 90670; 96361; 96365; 96375; C9113; G0009; J0696; J1644; J2250; J2405; J2704; J3475; J3480; J7050; J7507; J7517; Q0162

== ENCOUNTER 2018-03-17 07:43 | Outpatient (CLI) | payer OTHER ==
--- NOTE | 2018-03-17 14:08 | NM ---
NUCLEAR MEDICINE GASTRIC EMPTYING STUDY: HISTORY: Nausea and vomiting. Evaluation for gastroparesis. TECHNIQUE: Examination is performed using 2.1 millicuries 99m technetium sulfur colloid mixed with eggs. FINDINGS: At approximately 28 minutes, there is 28% emptying. At 60 minutes, 42% emptying. At 121 minutes, th ere 64% emptying. At 238 minutes, there is 91% emptying. Calculated T-1/2 is 83 minutes. IMPRESSION: Unremarkable gastric emptying study. The T-1/2 is calculated at 83 minutes. POS: [id number]
== END 2018-03-17 07:44 | disposition home or self-care (01) ==
LOC: NM 07:43
PROVIDERS: ATTEND Internal Medicine Gastroenterology
DX: R11.2 Nausea with vomiting, unspecified (principal); R14.0 Abdominal distension (gaseous); R63.4 Abnormal weight loss; D89.9 Disorder involving the immune mechanism, unspecified; Z94.0 Kidney transplant status
CPT/HCPCS: 78264; A9541

== ENCOUNTER 2021-03-24 01:26 | Inpatient (IN) | payer OTHER ==
[2021-03-24 02:39] LABS: #Basophils 0.1 thou/uL (0.0-0.2); #Eosinphils 0.1 thou/uL (0.0-0.7); #Lymphocytes 1.3 thou/uL (1.20-3.40); #Monocytes 0.8 thou/uL (0.11-0.59); %Basophils 0.7 % (0.0-1.0); %Eosinophils 0.5 % (0.0-10.0); %Lymphocytes 10.5 % (21.0-51.0); %Monocytes 6.7 % (0.0-10.0); %Neutrophils 81.7 % (42.0-75.0); Hemoglobin 10.9 g/dL (12.0-16.0); Mean Corpuscular HGB CONC 33.1 g/dL (32.0-36.0); Mean Corpuscular Hemoglobin 28.8 pg (27.0-31.0); Mean Corpuscular Volume 87.1 fL (78.0-98.0); Platelet Count 493 thou/uL (130-400); RBC Distribution Width 12.4 % (11.5-14.5); Red Blood Cell (RBC) Count 3.79 mill/uL (4.20-5.40); White Blood Cell (WBC) Count 12.2 thou/uL (4.8-10.8)
[2021-03-24 03:04] LABS: Anion Gap 14 mmol/L (10-20); BUN (Urea Nitrogen) 19 mg/dL (7.0-18.7); Calc. Creatinine Clearance 0 mL/min (70-130); Carbon Dioxide 20 mmol/L (22-29); Chloride 96 mmol/L (98-107); Potassium 3.7 mmol/L (3.5-5.1); Sodium 126 mmol/L (136-145)
[2021-03-24 03:05] LABS: ALT (SGPT) 12 U/L (8-55); AST (SGOT) 14 U/L (5-34); Albumin 3.5 g/dL (3.5-5.0); Alkaline Phosphatase 74 U/L (40-110); Bilirubin, Total 0.3 mg/dL (0.2-1.2); Calcium 8.9 mg/dL (7.8-10.44); Globulin 3.7 g/dL (2.4-3.5); Glucose 98 mg/dL (70-105); Protein, Total 7.2 g/dL (6.0-8.3)
[2021-03-24 03:06] LABS: Bilirubin Negative (Negative); Blood, Urine Negative (Negative); Clarity Clear (Clear); Glucose, Urine (Dipstick) Normal (Negative); Ketone, Urine Negative (Negative); Leukocyte Negative Leu/uL (Negative); Nitrite Negative (Negative); Protein, Urine (Dipstick) Negative (Neg-Trace); Specific Gravity, Urine 1.007 (1.002-1.036); Urobilinogen Normal mg/dL (Less than 2); pH, Urine 5.5 (5.0-9.0)
[2021-03-24] MEDS ORDERED: Azithromycin 500 MG VIAL ONE (03:12)
[2021-03-24] MEDS ORDERED: cefTRIAXone\\ROCEPHIN 1 GM VIAL ONE (03:17)
[2021-03-24 03:27] LABS: CKMB 2.6 ng/mL (0-6.6)
[2021-03-24] MEDS ORDERED: Enoxaparin Sodium 100 MG/ML SYRINGE ONE (03:27)
[2021-03-24 04:50] LABS: SARS-CoV-2 NAA Rapid Test Not Detected (NotDetected)
[2021-03-24] MEDS ORDERED: Ondansetron PF 4 MG/2 ML Vial ONE (05:00)
[2021-03-24] MEDS ORDERED: Acetaminophen 325 MG TAB PO PRN (06:11)
[2021-03-24] MEDS ORDERED: Calcium Carbonate 500 MG ChewTAB PO PRN (06:11)
[2021-03-24] MEDS ORDERED: Acetaminophen 650 MG Suppository PR PRN (06:11)
[2021-03-24] MEDS ORDERED: Furosemide 20 MG/2 ML VIAL SLOW IVP SCH (06:30)
[2021-03-24] MEDS ORDERED: Furosemide 20 MG/2 ML VIAL ONE (07:57)
[2021-03-24 08:00] LABS: Hemoglobin A1c 5.4 % (4.0-6.0)
[2021-03-24 08:09] LABS: Cardiac Risk 3.1 (Less than 4.5)
[2021-03-24] MEDS ORDERED: Heparin 5,000 UNITS/ML VIAL SC SCH (09:00)
[2021-03-24 09:34] VITALS: BMI 19.0
[2021-03-24] MEDS ORDERED: Acetaminophen 500 MG TAB PO PRN (09:46)
[2021-03-24 09:49] LABS: Troponin I 0.047 ng/mL (< 0.028)
[2021-03-24] MEDS ORDERED: Dextromethorphan Polistirex 30 MG/5 ML (89 ML BOTTLE) PO PRN (11:17)
[2021-03-24] MEDS ORDERED: Tacrolimus 1 MG CAP PO SCH ×2 (13:15→21:00)
[2021-03-24] MEDS ORDERED: Mycophenolate 250 MG CAP PO SCH (13:15)
[2021-03-24] MEDS: Mycophenolate 250 MG CAP PO SCH (21:03)
[2021-03-25 06:34] LABS: Hemoglobin 10.3 g/dL (12.0-16.0); Lymphocytes 14 % (21-51); MDiff Complete? YES; Mean Corpuscular Volume 87.7 fL (78.0-98.0); Mean Platelet Volume 6.8 fL (7.4-10.4); Monocytes 10 % (0-10); Neutrophil 76 % (42-75); Platelet Count 401 thou/uL (130-400); Platelet Morphology Comment Appears Adequate; RBC Distribution Width 12.3 % (11.5-14.5); Red Blood Cell (RBC) Count 3.57 mill/uL (4.20-5.40); White Blood Cell (WBC) Count 8.6 thou/uL (4.8-10.8)
[2021-03-25 06:43] LABS: ALT (SGPT) 9 U/L (8-55); AST (SGOT) 10 U/L (5-34); Albumin 3.1 g/dL (3.5-5.0); Alkaline Phosphatase 65 U/L (40-110); Anion Gap 12 mmol/L (10-20); BUN (Urea Nitrogen) 17 mg/dL (7.0-18.7); Bilirubin, Total 0.4 mg/dL (0.2-1.2); Calc. Creatinine Clearance 35 mL/min (70-130); Calcium 9.2 mg/dL (7.8-10.44); Carbon Dioxide 23 mmol/L (22-29); Chloride 101 mmol/L (98-107); Globulin 3.4 g/dL (2.4-3.5); Glucose 94 mg/dL (70-105); Potassium 4.2 mmol/L (3.5-5.1); Protein, Total 6.5 g/dL (6.0-8.3); Sodium 132 mmol/L (136-145)
[2021-03-25] MEDS ORDERED: Ondansetron PF 4 MG/2 ML Vial IVP PRN (08:21)
[2021-03-25] MEDS ORDERED: Enoxaparin Sodium 40 MG/0.4 ML SYRINGE SC SCH (09:00)
[2021-03-25] MEDS ORDERED: Tacrolimus 1 MG CAP PO SCH (09:00)
[2021-03-25] MEDS ORDERED: Azithromycin 500 MG in Sodium Chloride 0.9% 250 ML 250 ML IVPB SCH (09:00)
[2021-03-25] MEDS ORDERED: cefTRIAXone\\ROCEPHIN 1 GM in Sodium Chloride 0.9% 100 ML IVPB SCH (09:00)
[2021-03-25] MEDS: Mycophenolate 250 MG CAP PO SCH (09:25)
[2021-03-25] MEDS ORDERED: Hydrochlorothiazide 25 MG TAB PO SCH (11:00)
[2021-03-25 11:54] VITALS: BP 124/81; TEMP 98.4
[2021-03-26] MEDS ORDERED: Azithromycin 250 MG TAB PO SCH (09:00)
[2021-03-26] MEDS ORDERED: Hydrochlorothiazide 25 MG TAB PO SCH (09:00)
== END 2021-03-25 14:10 | disposition home or self-care (01) | DRG 871 ==
LOC: ERS 01:26 → ERHOLD 05:44 → OBSVTOIN 06:22 → NEURO 08:47
PROVIDERS: ADMIT Family Medicine; ATTEND Family Medicine
DX: A41.9 Sepsis, unspecified organism (principal); J12.9 Viral pneumonia, unspecified; J96.01 Acute respiratory failure with hypoxia; I50.31 Acute diastolic (congestive) heart failure; E87.1 Hypo-osmolality and hyponatremia; T86.19 Other complication of kidney transplant; I13.0 Hypertensive heart and chronic kidney disease with heart failure and stage 1 through stage 4 chronic kidney disease, or unspecified chronic kidney disease; Z20.822 Contact with and (suspected) exposure to COVID-19; N18.9 Chronic kidney disease, unspecified; Z88.0 Allergy status to penicillin; Z79.899 Other long term (current) drug therapy; Z98.890 Other specified postprocedural states; Z87.891 Personal history of nicotine dependence; Z71.6 Tobacco abuse counseling
CPT/HCPCS: 36415; 71046; 71250; 80053; 80061; 81003; 82553; 83036; 83605; 83880; 84145; 84443; 84484; 85007; 85025; 85027; 85379; 87040; 87086; 87633; 87798; 93005; 93306; 94760; G0378; J0456; J0696; J1650; J1940; J2405; J3490; J7050; J7507; J7517; U0002

== ENCOUNTER 2021-08-20 13:27 | Outpatient (CLI) | payer BC | END 2021-08-20 13:28 | disposition home or self-care (01) | LOC: BICRAD 13:27 | DX: R22.41 Localized swelling, mass and lump, right lower limb (principal); M79.9 Soft tissue disorder, unspecified ==

== ENCOUNTER 2021-09-17 12:00 | Outpatient (CLI) | payer BC | END 2021-09-17 12:01 | disposition home or self-care (01) | LOC: PET 12:00 | PROVIDERS: ATTEND Internal Medicine Hematology & Oncology | DX: C40.21 Malignant neoplasm of long bones of right lower limb (principal); C78.01 Secondary malignant neoplasm of right lung; C78.02 Secondary malignant neoplasm of left lung; R91.8 Other nonspecific abnormal finding of lung field; J90 Pleural effusion, not elsewhere classified | CPT/HCPCS: 78815; A9552 ==

== ENCOUNTER 2021-09-17 14:00 | Outpatient (CLI) | payer BC | END 2021-09-17 14:01 | disposition home or self-care (01) | LOC: LABBT 14:00 | PROVIDERS: ATTEND Surgery | DX: C40.21 Malignant neoplasm of long bones of right lower limb (principal); Z20.822 Contact with and (suspected) exposure to COVID-19 | CPT/HCPCS: U0003; U0005 ==

== ENCOUNTER 2021-09-18 13:05 | Day surgery (SDC) | payer BC ==
[2021-09-18] MEDS ORDERED: Sodium Chloride 0.9% 1,000 ML IV SCH (13:30)
[2021-09-18] MEDS ORDERED: diphenhydrAMINE 25 MG CAP ONE (13:57)
[2021-09-18] MEDS ORDERED: Acetaminophen 500 MG TAB ONE (13:57)
[2021-09-18] MEDS ORDERED: diphenhydrAMINE 50 MG/ML VIAL ONE (13:57)
[2021-09-18 16:32] VITALS: BP 158/93; TEMP 97.9
[2021-09-18 16:36] LABS: #Lymphocytes 1.1 thou/uL (1.20-3.40); #Monocytes 0.6 thou/uL (0.11-0.59); #Neutrophils 10.7 thou/uL (1.40-6.50); %Basophils 0.3 % (0.0-1.0); %Eosinophils 0.4 % (0.0-10.0); %Lymphocytes 8.6 % (21.0-51.0); %Monocytes 5.2 % (0.0-10.0); %Neutrophils 85.7 % (42.0-75.0); Hemoglobin 7.6 g/dL (12.0-16.0); Mean Corpuscular HGB CONC 32.5 g/dL (32.0-36.0); Mean Corpuscular Hemoglobin 29.5 pg (27.0-31.0); Mean Corpuscular Volume 90.5 fL (78.0-98.0); Mean Platelet Volume 5.9 fL (7.4-10.4); Platelet Count 604 thou/uL (130-400); RBC Distribution Width 13.2 % (11.5-14.5); Red Blood Cell (RBC) Count 2.58 mill/uL (4.20-5.40); White Blood Cell (WBC) Count 12.5 thou/uL (4.8-10.8)
[2021-09-18 16:59] LABS: Anion Gap 11 mmol/L (10-20); BUN (Urea Nitrogen) 31 mg/dL (7.0-18.7); Calc. Creatinine Clearance 0 mL/min (70-130); Calcium 7.6 mg/dL (7.8-10.44); Carbon Dioxide 22 mmol/L (22-29); Chloride 94 mmol/L (98-107); Glucose 103 mg/dL (70-105); Potassium 3.4 mmol/L (3.5-5.1); Sodium 124 mmol/L (136-145)
== END 2021-09-18 16:33 | disposition home or self-care (01) ==
LOC: ONC/OP 13:05
PROVIDERS: ATTEND Internal Medicine Hematology & Oncology
PROC: 30233N1 Transfusion of Nonautologous Red Blood Cells into Peripheral Vein, Percutaneous Approach (ICD-10-PCS; principal; 2021-09-18)
DX: D64.9 Anemia, unspecified (principal); C40.21 Malignant neoplasm of long bones of right lower limb; C78.01 Secondary malignant neoplasm of right lung; Z88.0 Allergy status to penicillin; Z88.8 Allergy status to other drugs, medicaments and biological substances
CPT/HCPCS: 36430; 71045; 80048; 85025; 86850; 86900; 86901; 86922; 96365; J1200; J1642; J1956; J2250; J2704; P9016; S0020

== ENCOUNTER 2021-09-25 08:46 | Day surgery (SDC) | payer BC ==
[2021-09-25] MEDS ORDERED: Acetaminophen 500 MG TAB ONE (08:59)
[2021-09-25] MEDS ORDERED: diphenhydrAMINE 25 MG CAP ONE (08:59)
[2021-09-25 11:39] VITALS: TEMP 97.5
[2021-09-25 13:31] VITALS: BP 160/95
[2021-09-25 13:36] LABS: #Monocytes 0.6 thou/uL (0.11-0.59); #Neutrophils 10.7 thou/uL (1.40-6.50); %Basophils 0.2 % (0.0-1.0); %Eosinophils 0.1 % (0.0-10.0); %Lymphocytes 8.1 % (21.0-51.0); %Monocytes 4.6 % (0.0-10.0); %Neutrophils 87.1 % (42.0-75.0); Hemoglobin 10.7 g/dL (12.0-16.0); Mean Corpuscular HGB CONC 32.8 g/dL (32.0-36.0); Mean Corpuscular Hemoglobin 30.6 pg (27.0-31.0); Mean Corpuscular Volume 93.1 fL (78.0-98.0); Platelet Count 595 thou/uL (130-400); Red Blood Cell (RBC) Count 3.51 mill/uL (4.20-5.40); White Blood Cell (WBC) Count 12.3 thou/uL (4.8-10.8)
== END 2021-09-25 13:32 | disposition home or self-care (01) ==
LOC: ONC/OP 08:46
PROVIDERS: ATTEND Internal Medicine Hematology & Oncology
PROC: 30233N1 Transfusion of Nonautologous Red Blood Cells into Peripheral Vein, Percutaneous Approach (ICD-10-PCS; principal; 2021-09-25)
DX: D64.9 Anemia, unspecified (principal); D69.6 Thrombocytopenia, unspecified; Z88.0 Allergy status to penicillin; Z88.8 Allergy status to other drugs, medicaments and biological substances
CPT/HCPCS: 36430; 85025; 86850; 86900; 86901; 86922; J1642; P9016

== ENCOUNTER 2021-11-19 11:45 | Outpatient (CLI) | payer BC | END 2021-11-19 11:46 | disposition home or self-care (01) | LOC: PET 11:45 | PROVIDERS: ATTEND Internal Medicine Hematology & Oncology | DX: Z51.11 Encounter for antineoplastic chemotherapy (principal); Z48.22 Encounter for aftercare following kidney transplant; C40.21 Malignant neoplasm of long bones of right lower limb; C78.01 Secondary malignant neoplasm of right lung | CPT/HCPCS: 78816; A9552 ==

== ENCOUNTER 2022-01-12 08:59 | Day surgery (SDC) | payer BC ==
[2022-01-12] MEDS ORDERED: diphenhydrAMINE 25 MG CAP ONE (09:23)
[2022-01-12] MEDS ORDERED: Acetaminophen 500 MG TAB ONE (09:23)
[2022-01-12] MEDS ORDERED: Acetaminophen 500 MG TAB PO SCH (10:15)
[2022-01-12] MEDS ORDERED: diphenhydrAMINE 25 MG CAP PO SCH (10:15)
[2022-01-12 12:33] VITALS: BP 149/86; TEMP 98.3
== END 2022-01-12 12:35 | disposition home or self-care (01) ==
LOC: ONC/OP 08:59
PROVIDERS: ATTEND Internal Medicine Hematology & Oncology
PROC: 30233N1 Transfusion of Nonautologous Red Blood Cells into Peripheral Vein, Percutaneous Approach (ICD-10-PCS; principal; 2022-01-12)
DX: D64.9 Anemia, unspecified (principal); D69.6 Thrombocytopenia, unspecified; Z88.0 Allergy status to penicillin; Z88.8 Allergy status to other drugs, medicaments and biological substances
CPT/HCPCS: 36430; 86850; 86900; 86901; 86922; J1642; P9016

== ENCOUNTER 2022-02-01 10:24 | Day surgery (SDC) | payer BC ==
[2022-02-01] MEDS ORDERED: Acetaminophen 500 MG TAB ONE (10:53)
[2022-02-01] MEDS ORDERED: diphenhydrAMINE 25 MG CAP ONE (10:53)
[2022-02-01] MEDS ORDERED: diphenhydrAMINE 25 MG CAP PO SCH (11:45)
[2022-02-01] MEDS ORDERED: Acetaminophen 500 MG TAB PO SCH (11:45)
[2022-02-01 14:42] VITALS: BP 159/92; TEMP 98.2
== END 2022-02-01 14:42 | disposition home or self-care (01) ==
LOC: ONC/OP 10:24
PROVIDERS: ATTEND Internal Medicine Hematology & Oncology
PROC: 30233N1 Transfusion of Nonautologous Red Blood Cells into Peripheral Vein, Percutaneous Approach (ICD-10-PCS; principal; 2022-02-01)
DX: D64.9 Anemia, unspecified (principal); D69.6 Thrombocytopenia, unspecified; Z88.0 Allergy status to penicillin; Z88.8 Allergy status to other drugs, medicaments and biological substances
CPT/HCPCS: 36430; 86850; 86900; 86901; P9016

== ENCOUNTER 2022-02-17 09:00 | Day surgery (SDC) | payer BC ==
[~2022-02-17 09:00] MED LIST: Acetaminophen 500 MG TAB PO SCH; diphenhydrAMINE 25 MG CAP PO SCH
[2022-02-17] MEDS ORDERED: diphenhydrAMINE 25 MG CAP ONE (09:20)
[2022-02-17] MEDS ORDERED: Acetaminophen 500 MG TAB ONE (09:20)
[2022-02-17 14:44] VITALS: BP 174/100; TEMP 97.4
== END 2022-02-17 14:54 | disposition home or self-care (01) ==
LOC: ONC/OP 09:00
PROVIDERS: ATTEND Internal Medicine Hematology & Oncology
PROC: 30233N1 Transfusion of Nonautologous Red Blood Cells into Peripheral Vein, Percutaneous Approach (ICD-10-PCS; principal; 2022-02-17)
DX: D64.9 Anemia, unspecified (principal); D69.6 Thrombocytopenia, unspecified; Z88.0 Allergy status to penicillin; Z88.8 Allergy status to other drugs, medicaments and biological substances
CPT/HCPCS: 36430; 86850; 86900; 86901; 86922; J1642; P9016

== ENCOUNTER 2022-03-02 02:53 | Inpatient (IN) | payer BC ==
[2022-03-02 03:13] LABS: Actual Bicarbonate (HCO3a) 17.3 mEq/L (22-28); Analyzer IN Cardio ER; CO2 Tension 38.9 mmHg (35.0-45.0); Calcium, Ionized (arterial) 1.07 mmol/L (1.12-1.30); Carboxyhemoglobin (COHb) 0.3 gm% (0.0-3.0); Hemoglobin (Hb) 8.9 g/dL (12.0-16.0); O2 Tension (PaO2), arterial 236.7 mmHg (80.0-100.0); Potassium - ABG Lab 3.59 mmol/L (3.70-5.30); pH, Arterial 7.27 (7.35-7.45)
[2022-03-02 03:15] LABS: Puncture Site LRA
[2022-03-02 03:20] LABS: ALV-art Gradient 71.175 mmHg (0-20)
[2022-03-02] MEDS ORDERED: Fentanyl CADD 100 ML IV SCH ×2 (03:45→05:45)
[2022-03-02 03:51] LABS: BHCG - Serum Negative (NEGATIVE); Pregs Control Background? CLEAR/WHITE (CLR/WHITE); Pregs Control Bar Appear? YES (CONTROL BAR)
[2022-03-02 03:54] LABS: ALT (SGPT) 14 U/L (8-55); AST (SGOT) 27 U/L (5-34); Albumin 2.4 g/dL (3.5-5.0); Alkaline Phosphatase 150 U/L (40-110); Anion Gap 17 mmol/L (10-20); BUN (Urea Nitrogen) 36 mg/dL (7.0-18.7); Bilirubin, Total 0.3 mg/dL (0.2-1.2); Calc. Creatinine Clearance 0 mL/min (70-130); Calcium 7.3 mg/dL (7.8-10.44); Carbon Dioxide 15 mmol/L (22-29); Chloride 95 mmol/L (98-107); Estimated GFR 28; Globulin 3.3 g/dL (2.4-3.5); Glucose 184 mg/dL (70-105); Potassium 3.7 mmol/L (3.5-5.1); Protein, Total 5.7 g/dL (6.0-8.3); Sodium 123 mmol/L (136-145)
[2022-03-02 03:55] LABS: #Eosinphils 0.1 thou/uL (0.0-0.7); #Lymphocytes 0.4 thou/uL (1.20-3.40); #Monocytes 0.3 thou/uL (0.11-0.59); #Neutrophils 13.2 thou/uL (1.40-6.50); %Basophils 0.1 % (0.0-1.0); %Eosinophils 0.5 % (0.0-10.0); %Neutrophils 94.5 % (42.0-75.0); Hemoglobin 8.1 g/dL (12.0-16.0); Mean Corpuscular HGB CONC 33.7 g/dL (32.0-36.0); Mean Corpuscular Hemoglobin 30.5 pg (27.0-31.0); Mean Corpuscular Volume 90.6 fl (78.0-98.0); Mean Platelet Volume 7.1 fL (7.4-10.4); Platelet Count 272 10x3/uL (130-400); RBC Distribution Width 19.2 % (11.5-14.5); Red Blood Cell (RBC) Count 2.67 mill/uL (4.20-5.40)
[2022-03-02 03:57] LABS: INR-International Normal Ratio 1.2; Prothrombin Time 16.1 sec (12.0-14.7)
[2022-03-02 03:58] LABS: PTT 44.2 sec (22.9-36.1)
[2022-03-02] MEDS ORDERED: levETIRAcetam 500 MG/5 ML VIAL ONE (04:46)
[2022-03-02] MEDS ORDERED: Electrolyte Replacement Protocol 1 EACH IVPB PRN (05:37)
[2022-03-02] MEDS ORDERED: Ondansetron ODT 4 MG TAB PO PRN (05:37)
[2022-03-02] MEDS ORDERED: Cefepime 2 GM VIAL ONE (05:39)
[2022-03-02] MEDS ORDERED: Midazolam HCl 2 mg/2 ml Vial SLOW IVP PRN (05:43)
[2022-03-02] MEDS ORDERED: Ventilator Sedation Protocol 1 EACH FS SCH (05:45)
[2022-03-02] MEDS ORDERED: Propofol BOLUS 1,000 MG/100 ML VIAL IV PRN (05:45)
[2022-03-02] MEDS ORDERED: DISCONTINUE PREVIOUS NARCOTIC PAIN MEDICATIONS AND BENZODIAZEPINES FS SCH (05:45)
[2022-03-02] MEDS ORDERED: Fentanyl BOLUS 250 ML IVPB PRN (05:45)
[2022-03-02] MEDS ORDERED: Morphine 4 MG/ML VIAL SLOW IVP PRN (05:45)
[2022-03-02 05:52] LABS: Bilirubin Negative (Negative); Blood, Urine Negative (Negative); Clarity Clear (Clear); Glucose, Urine (Dipstick) Normal (Negative); Ketone, Urine Negative (Negative); Leukocyte Negative Leu/uL (Negative); Nitrite Negative (Negative); Protein, Urine (Dipstick) 70 mg/dL (Neg-Trace); RBC/HPF 0-3 HPF (0-3); Specific Gravity, Urine 1.013 (1.002-1.036); Squamous Epithelial None Seen HPF (0-3); Urobilinogen Normal mg/dL (Less than 2); WBC/HPF 0-3 HPF (0-3); pH, Urine 5.5 (5.0-9.0)
[2022-03-02 05:56] LABS: Bacteria/HPF 1+ HPF (None Seen)
[2022-03-02] MEDS ORDERED: Vancomycin 1 GM/200 ML (FROZEN) BAG ONE (05:58)
[2022-03-02] MEDS ORDERED: Lorazepam 2 MG/ML VIAL SLOW IVP PRN (06:03)
[2022-03-02 06:09] LABS: SARS-CoV-2 NAA Rapid Test Not Detected (NotDetected)
[2022-03-02] MEDS: Propofol 1,000 MG/100 ML VIAL IV PRN ×2 (06:50→22:37)
[2022-03-02 07:23] LABS: Lactic Acid 1.6 mmol/L (0.5-2.2)
[2022-03-02] MEDS ORDERED: Sodium Chloride 0.9% 1,000 ML IV SCH (07:45)
[2022-03-02] MEDS: levETIRAcetam 500 MG/5 ML VIAL SLOW IVP SCH ×2 (08:16→20:06)
[2022-03-02] MEDS: Enoxaparin Sodium 30 MG/0.3 ML SYRINGE SC SCH (08:16)
[2022-03-02 08:19] LABS: Troponin I 0.084 ng/mL (< 0.028)
[2022-03-02 08:38] LABS: SARS-CoV-2 NAA Rapid Test Not Detected (NotDetected)
[2022-03-02] MEDS ORDERED: Labetalol HCl 100 MG/20 ML VIAL SLOW IVP PRN (09:00)
[2022-03-02] MEDS ORDERED: levETIRAcetam in NS 500 MG in Premix Bag 1 BAG IVPB SCH (09:00)
[2022-03-02] MEDS ORDERED: Sertraline 100 MG TAB PER TUBE SCH (09:15)
[2022-03-02] MEDS ORDERED: Tacrolimus 1 MG CAP PO SCH (09:15)
[2022-03-02] MEDS ORDERED: Metoprolol Tartrate 25 MG TAB PER TUBE SCH (09:30)
[2022-03-02 10:22] LABS: Troponin I 0.072 ng/mL (< 0.028)
[2022-03-02] MEDS: Pantoprazole 40 MG VIAL IVP SCH (10:30)
[2022-03-02] MEDS ORDERED: Iopamidol 370 76% 100 ML VIAL ONE (13:15)
[2022-03-02 15:38] LABS: Glucose 104 mg/dL (70-105)
[2022-03-02] MEDS: Tacrolimus 1 MG CAP PO SCH (20:06)
[2022-03-02] MEDS: Metoprolol Tartrate 25 MG TAB PER TUBE SCH (20:06)
[2022-03-02 20:28] LABS: Anion Gap 13 mmol/L (10-20); BUN (Urea Nitrogen) 38 mg/dL (7.0-18.7); Calc. Creatinine Clearance 24 mL/min (70-130); Calcium 7.1 mg/dL (7.8-10.44); Carbon Dioxide 18 mmol/L (22-29); Chloride 100 mmol/L (98-107); Estimated GFR 31; Glucose 101 mg/dL (70-105); Potassium 3.6 mmol/L (3.5-5.1); Sodium 127 mmol/L (136-145)
[2022-03-02] MEDS ORDERED: Mycophenolate 250 MG CAP PO SCH (21:00)
[2022-03-03] MEDS: Dextrose 5 % And 0.9 % NaCl 1,000 ML IV SCH ×3 (00:07→20:18)
[2022-03-03] MEDS ORDERED: niCARdipine 25 MG in Sodium Chloride 0.9% 250 ML 250 ML IVPB SCH (02:00)
[2022-03-03] MEDS: Labetalol HCl 100 MG/20 ML VIAL SLOW IVP PRN ×2 (03:15→08:05)
[2022-03-03 04:05] LABS: #Lymphocytes 0.8 thou/uL (1.20-3.40); #Monocytes 0.2 thou/uL (0.11-0.59); #Neutrophils 7.8 thou/uL (1.40-6.50); %Eosinophils 0.1 % (0.0-10.0); %Lymphocytes 9.5 % (21.0-51.0); %Monocytes 1.8 % (0.0-10.0); %Neutrophils 88.6 % (42.0-75.0); Hemoglobin 7.9 g/dL (12.0-16.0); Mean Corpuscular Volume 88.4 fl (78.0-98.0); Mean Platelet Volume 7.7 fL (7.4-10.4); Platelet Count 143 10x3/uL (130-400); Red Blood Cell (RBC) Count 2.62 mill/uL (4.20-5.40); White Blood Cell (WBC) Count 8.9 10x3/uL (4.8-10.8)
[2022-03-03 04:32] LABS: ALT (SGPT) 16 U/L (8-55); AST (SGOT) 24 U/L (5-34); Albumin 1.9 g/dL (3.5-5.0); Alkaline Phosphatase 105 U/L (40-110); Anion Gap 13 mmol/L (10-20); BUN (Urea Nitrogen) 39 mg/dL (7.0-18.7); Bilirubin, Total 0.4 mg/dL (0.2-1.2); Calc. Creatinine Clearance 22 mL/min (70-130); Carbon Dioxide 17 mmol/L (22-29); Chloride 102 mmol/L (98-107); Estimated GFR 28; Globulin 2.9 g/dL (2.4-3.5); Glucose 104 mg/dL (70-105); Magnesium 1.5 mg/dL (1.6-2.6); Phosphorus 5.6 mg/dL (2.3-4.7); Potassium 3.5 mmol/L (3.5-5.1); Protein, Total 4.8 g/dL (6.0-8.3); Sodium 128 mmol/L (136-145)
[2022-03-03 07:11] LABS: Actual Bicarbonate (HCO3a) 15.7 mEq/L (22-28); Base Excess (BEa) -8.7 mEq/L (-2.0 to +3.0); CO2 Tension 28.3 mmHg (35.0-45.0); Calcium, Ionized (arterial) 1.06 mmol/L (1.12-1.30); Carboxyhemoglobin (COHb) 0.7 gm% (0.0-3.0); O2 Tension (PaO2), arterial 116.1 mmHg (80.0-100.0); pH, Arterial 7.36 (7.35-7.45)
[2022-03-03 07:30] LABS: ALV-art Gradient 62.425 mmHg (0-20); Puncture Site RBA
[2022-03-03] MEDS: levETIRAcetam 500 MG/5 ML VIAL SLOW IVP SCH ×2 (09:34→20:11)
[2022-03-03] MEDS: Enoxaparin Sodium 30 MG/0.3 ML SYRINGE SC SCH (09:34)
[2022-03-03] MEDS: Tacrolimus 1 MG CAP PO SCH ×2 (09:34→20:19)
[2022-03-03] MEDS: Pantoprazole 40 MG VIAL IVP SCH (09:35)
[2022-03-03] MEDS: Metoprolol Tartrate 25 MG TAB PER TUBE SCH (09:35)
[2022-03-03] MEDS: Sertraline 100 MG TAB PER TUBE SCH (09:35)
[2022-03-03] MEDS: niCARdipine 25 MG in Sodium Chloride 0.9% 250 ML 250 ML IVPB PRN (11:08)
[2022-03-03] MEDS ORDERED: Magnesium 2 GM/50 ML(in water) 2 GM in Premix Bag 1 BAG IVPB SCH (13:00)
[2022-03-03] MEDS: Albumin 25% 25 GM/100 ML BOT IVPB SCH ×2 (13:13→18:08)
[2022-03-03] MEDS: Acetaminophen 325 MG TAB PO PRN (18:06)
[2022-03-03] MEDS ORDERED: Morphine 4 MG/ML VIAL SLOW IVP PRN (18:33)
[2022-03-03] MEDS ORDERED: Morphine 4 MG/ML VIAL SLOW IVP SCH (19:45)
[2022-03-03] MEDS: Metoprolol Tartrate 5 MG/5 ML VIAL IVP SCH (20:18)
[2022-03-03] MEDS: Morphine 4 MG/ML VIAL SLOW IVP PRN (23:11)
[2022-03-04] MEDS: Albumin 25% 25 GM/100 ML BOT IVPB SCH ×5 (00:23→23:51)
[2022-03-04] MEDS: niCARdipine 25 MG in Sodium Chloride 0.9% 250 ML 250 ML IVPB PRN ×3 (00:24→23:50)
[2022-03-04] MEDS: Dextrose 5 % And 0.9 % NaCl 1,000 ML IV SCH (00:40)
[2022-03-04] MEDS: Morphine 4 MG/ML VIAL SLOW IVP PRN ×5 (03:09→19:42)
[2022-03-04] MEDS: Metoprolol Tartrate 5 MG/5 ML VIAL IVP SCH ×4 (03:09→20:33)
[2022-03-04] MEDS: Acetaminophen 650 MG Suppository PR PRN ×3 (04:45→12:48)
[2022-03-04 06:55] LABS: #Lymphocytes 0.7 thou/uL (1.20-3.40); #Monocytes 0.1 thou/uL (0.11-0.59); #Neutrophils 9.5 thou/uL (1.40-6.50); %Eosinophils 0.1 % (0.0-10.0); %Lymphocytes 6.4 % (21.0-51.0); %Neutrophils 92.5 % (42.0-75.0); Hemoglobin 8.5 g/dL (12.0-16.0); Mean Corpuscular HGB CONC 33.6 g/dL (32.0-36.0); Mean Corpuscular Hemoglobin 29.7 pg (27.0-31.0); Mean Corpuscular Volume 88.4 fl (78.0-98.0); Mean Platelet Volume 8.4 fL (7.4-10.4); Platelet Count 98 10x3/uL (130-400); RBC Distribution Width 18.1 % (11.5-14.5); Red Blood Cell (RBC) Count 2.86 mill/uL (4.20-5.40); White Blood Cell (WBC) Count 10.2 10x3/uL (4.8-10.8)
[2022-03-04 07:20] LABS: Anion Gap 16 mmol/L (10-20); BUN (Urea Nitrogen) 35 mg/dL (7.0-18.7); Calc. Creatinine Clearance 22 mL/min (70-130); Calcium 8.1 mg/dL (7.8-10.44); Carbon Dioxide 16 mmol/L (22-29); Chloride 106 mmol/L (98-107); Estimated GFR 27; Glucose 115 mg/dL (70-105); Potassium 3.5 mmol/L (3.5-5.1); Sodium 134 mmol/L (136-145)
[2022-03-04 07:59] LABS: Anisocytosis SLIGHT = 6-15 cells (100X) (0-5/hpf); MDiff Complete? YES; Platelet Morphology Comment Appears Decreased; Schistocytes SLIGHT = 2-5 cells (100X) (0-1/hpf)
[2022-03-04] MEDS: levETIRAcetam 500 MG/5 ML VIAL SLOW IVP SCH ×2 (08:48→21:26)
[2022-03-04] MEDS: Pantoprazole 40 MG VIAL IVP SCH (08:50)
[2022-03-04] MEDS ORDERED: Sodium Bicarbonate 150 MEQ in Dextrose 5% in Water 850 ML IV SCH (09:00)
[2022-03-04] MEDS ORDERED: Sodium Bicarbonate 150 MEQ in Dextrose 5% in Water 1,000 ML IV SCH (09:00)
[2022-03-04] MEDS: Sertraline 100 MG TAB PER TUBE SCH (09:24)
[2022-03-04] MEDS: Tacrolimus 1 MG CAP PO SCH ×2 (09:24→21:26)
[2022-03-04] MEDS ORDERED: Dexmedetomidine In 0.9 % NaCl 100 ML IVPB SCH (09:30)
[2022-03-04] MEDS: Sodium Bicarbonate 150 MEQ in Dextrose 5% in Water 850 ML IV SCH ×2 (10:11→22:37)
[2022-03-04] MEDS: Acetaminophen 325 MG TAB PO PRN (17:31)
[2022-03-04] MEDS: Labetalol HCl 100 MG/20 ML VIAL SLOW IVP PRN (21:38)
[2022-03-04] MEDS ORDERED: Morphine ER 30 MG TAB PO SCH (22:00)
[2022-03-04] MEDS: HYDROcodone/Acetaminophen 10/325 mg Tablet PO PRN (23:35)
[2022-03-05] MEDS: Nicotine 14 MG PATCH TD PRN (00:45)
[2022-03-05] MEDS: Metoprolol Tartrate 5 MG/5 ML VIAL IVP SCH ×4 (01:51→20:00)
[2022-03-05] MEDS: Acetaminophen 325 MG TAB PO PRN (02:34)
[2022-03-05 05:07] LABS: #Lymphocytes 0.7 thou/uL (1.20-3.40); #Neutrophils 6.6 thou/uL (1.40-6.50); %Basophils 0.1 % (0.0-1.0); %Eosinophils 0.3 % (0.0-10.0); %Lymphocytes 9.6 % (21.0-51.0); %Monocytes 0.2 % (0.0-10.0); %Neutrophils 89.8 % (42.0-75.0); Mean Corpuscular HGB CONC 33.2 g/dL (32.0-36.0); Mean Corpuscular Hemoglobin 29.6 pg (27.0-31.0); Mean Corpuscular Volume 89.1 fl (78.0-98.0); Mean Platelet Volume 9.5 fL (7.4-10.4); Platelet Count 60 10x3/uL (130-400); RBC Distribution Width 18.1 % (11.5-14.5); Red Blood Cell (RBC) Count 2.04 mill/uL (4.20-5.40); White Blood Cell (WBC) Count 7.3 10x3/uL (4.8-10.8)
[2022-03-05 05:23] LABS: Anion Gap 13 mmol/L (10-20); BUN (Urea Nitrogen) 38 mg/dL (7.0-18.7); Calc. Creatinine Clearance 20 mL/min (70-130); Calcium 8.3 mg/dL (7.8-10.44); Carbon Dioxide 21 mmol/L (22-29); Chloride 102 mmol/L (98-107); Estimated GFR 24; Glucose 101 mg/dL (70-105); Potassium 3.2 mmol/L (3.5-5.1); Sodium 133 mmol/L (136-145)
[2022-03-05] MEDS: Albumin 25% 25 GM/100 ML BOT IVPB SCH (06:16)
[2022-03-05] MEDS: HYDROcodone/Acetaminophen 10/325 mg Tablet PO PRN ×3 (07:56→23:09)
[2022-03-05] MEDS: levETIRAcetam 500 MG/5 ML VIAL SLOW IVP SCH ×2 (07:57→21:08)
[2022-03-05] MEDS: Sertraline 100 MG TAB PER TUBE SCH (07:57)
[2022-03-05] MEDS: Pantoprazole 40 MG VIAL IVP SCH (07:58)
[2022-03-05] MEDS: Morphine ER 30 MG TAB PO SCH ×2 (08:16→21:09)
[2022-03-05] MEDS: Labetalol HCl 100 MG/20 ML VIAL SLOW IVP PRN ×2 (10:12→21:07)
[2022-03-05 10:20] LABS: Hemoglobin 6.7 g/dL (12.0-16.0); Platelet Count 60 10x3/uL (130-400)
[2022-03-05] MEDS ORDERED: Lorazepam 2 MG/ML VIAL SLOW IVP PRN (11:02)
[2022-03-05] MEDS: Tacrolimus 1 MG CAP PO SCH ×2 (11:08→21:08)
[2022-03-05] MEDS ORDERED: Metoprolol Tartrate 50 MG TAB PO SCH (11:15)
[2022-03-05 12:06] LABS: Bacteria/HPF 2+ HPF (None Seen); Bilirubin Negative (Negative); Blood, Urine 2+ (Negative); Clarity Turbid (Clear); Glucose, Urine (Dipstick) Normal (Negative); Ketone, Urine Negative (Negative); Leukocyte 500 Leu/uL (Negative); Nitrite Negative (Negative); Protein, Urine (Dipstick) 200 mg/dL (Neg-Trace); Specific Gravity, Urine 1.019 (1.002-1.036); Squamous Epithelial 0-3 HPF (0-3); Urobilinogen Normal mg/dL (Less than 2); pH, Urine 5.5 (5.0-9.0)
[2022-03-05 12:13] LABS: WBC/HPF 21-50 HPF (0-3); Yeast-Budding 1+ HPF (None Seen); Yeast-Hyphae 1+ HPF (None Seen)
[2022-03-05 12:25] LABS: Creatinine, Urine 56.73 mg/dL (47-110)
[2022-03-05] MEDS: Sodium Bicarbonate 150 MEQ in Dextrose 5% in Water 850 ML IV SCH (16:45)
[2022-03-05] MEDS: niCARdipine 25 MG in Sodium Chloride 0.9% 250 ML 250 ML IVPB PRN (17:49)
[2022-03-05] MEDS: Metoprolol Tartrate 50 MG TAB PO SCH (21:08)
[2022-03-05] MEDS: Ondansetron PF 4 MG/2 ML Vial IVP PRN (21:13)
[2022-03-06] MEDS: Metoprolol Tartrate 5 MG/5 ML VIAL IVP SCH ×2 (01:34→08:44)
[2022-03-06] MEDS: Sodium Bicarbonate 150 MEQ in Dextrose 5% in Water 850 ML IV SCH (04:35)
[2022-03-06] MEDS: HYDROcodone/Acetaminophen 10/325 mg Tablet PO PRN ×2 (05:10→14:46)
[2022-03-06 05:29] LABS: #Lymphocytes 0.9 thou/uL (1.20-3.40); #Monocytes 0.1 thou/uL (0.11-0.59); #Neutrophils 4.3 thou/uL (1.40-6.50); %Basophils 0.4 % (0.0-1.0); %Eosinophils 0.3 % (0.0-10.0); %Lymphocytes 16.9 % (21.0-51.0); %Neutrophils 81.5 % (42.0-75.0); Hemoglobin 8.3 g/dL (12.0-16.0); Mean Corpuscular HGB CONC 33.2 g/dL (32.0-36.0); Mean Corpuscular Hemoglobin 30.1 pg (27.0-31.0); Mean Corpuscular Volume 90.7 fl (78.0-98.0); Mean Platelet Volume 10.3 fL (7.4-10.4); Platelet Count 46 10x3/uL (130-400); RBC Distribution Width 17.9 % (11.5-14.5); Red Blood Cell (RBC) Count 2.74 mill/uL (4.20-5.40); White Blood Cell (WBC) Count 5.2 10x3/uL (4.8-10.8)
[2022-03-06 05:43] LABS: Anion Gap 12 mmol/L (10-20); BUN (Urea Nitrogen) 44 mg/dL (7.0-18.7); Calc. Creatinine Clearance 22 mL/min (70-130); Calcium 7.9 mg/dL (7.8-10.44); Carbon Dioxide 24 mmol/L (22-29); Chloride 98 mmol/L (98-107); Estimated GFR 24; Glucose 101 mg/dL (70-105); Potassium 3.3 mmol/L (3.5-5.1); Sodium 131 mmol/L (136-145)
[2022-03-06] MEDS: Ondansetron PF 4 MG/2 ML Vial IVP PRN ×2 (08:30→14:44)
[2022-03-06] MEDS: Sertraline 100 MG TAB PER TUBE SCH (08:37)
[2022-03-06] MEDS: levETIRAcetam 500 MG/5 ML VIAL SLOW IVP SCH ×2 (08:37→20:41)
[2022-03-06] MEDS: Pantoprazole 40 MG VIAL IVP SCH (08:37)
[2022-03-06] MEDS: Metoprolol Tartrate 50 MG TAB PO SCH ×2 (08:38→20:38)
[2022-03-06] MEDS: Tacrolimus 1 MG CAP PO SCH ×2 (08:42→20:38)
[2022-03-06] MEDS ORDERED: Amlodipine 5 MG TAB PO SCH (09:00)
[2022-03-06] MEDS: Morphine ER 30 MG TAB PO SCH ×2 (09:01→20:41)
[2022-03-06] MEDS: Labetalol HCl 100 MG/20 ML VIAL SLOW IVP PRN (10:50)
[2022-03-06] MEDS: NS 0.9% w/ 20 MEQ KCL 1,000 ML/1,000 ML BAG IV SCH ×2 (12:30→20:59)
[2022-03-06] MEDS: niCARdipine 25 MG in Sodium Chloride 0.9% 250 ML 250 ML IVPB PRN ×2 (12:47→14:52)
[2022-03-06] MEDS: Amlodipine 5 MG TAB PO SCH (20:38)
[2022-03-06] MEDS: Nicotine 14 MG PATCH TD PRN (20:59)
[2022-03-07] MEDS: HYDROcodone/Acetaminophen 10/325 mg Tablet PO PRN ×4 (00:04→16:03)
[2022-03-07 05:59] LABS: Hemoglobin 10.1 g/dL (12.0-16.0); Mean Corpuscular HGB CONC 34.5 g/dL (32.0-36.0); Mean Corpuscular Volume 92.8 fl (78.0-98.0); Mean Platelet Volume 11.2 fL (7.4-10.4); Platelet Count 32 10x3/uL (130-400); RBC Distribution Width 18.3 % (11.5-14.5); Red Blood Cell (RBC) Count 3.15 mill/uL (4.20-5.40); White Blood Cell (WBC) Count 1.3 10x3/uL (4.8-10.8)
[2022-03-07 06:10] LABS: Anion Gap 14 mmol/L (10-20); BUN (Urea Nitrogen) 47 mg/dL (7.0-18.7); Calc. Creatinine Clearance 24 mL/min (70-130); Calcium 7.8 mg/dL (7.8-10.44); Carbon Dioxide 21 mmol/L (22-29); Chloride 99 mmol/L (98-107); Estimated GFR 24; Glucose 89 mg/dL (70-105); Potassium 3.9 mmol/L (3.5-5.1); Sodium 130 mmol/L (136-145)
[2022-03-07 06:24] LABS: Anisocytosis SLIGHT = 6-15 cells (100X) (0-5/hpf); Band 4 % (5-11); Eosinophils 1 % (0-10); Lymphocytes 67 % (21-51); MDiff Complete? YES; Metamyelocyte 2 % (0-0); Monocytes 1 % (0-10); Myelocyte 1 % (0-0); Neutrophil 23 % (42-75); Platelet Morphology Comment Appears Decreased; Tear Drops SLIGHT = 2-5 cells (100X) (0-1/hpf)
[2022-03-07] MEDS ORDERED: hydrALAZINE 20 MG/ML VIAL SLOW IVP PRN (08:15)
[2022-03-07] MEDS: NS 0.9% w/ 20 MEQ KCL 1,000 ML/1,000 ML BAG IV SCH ×2 (08:28→17:46)
[2022-03-07] MEDS: Metoprolol Tartrate 50 MG TAB PO SCH ×2 (08:29→20:47)
[2022-03-07] MEDS: Pantoprazole 40 MG VIAL IVP SCH (08:29)
[2022-03-07] MEDS: Sertraline 100 MG TAB PER TUBE SCH (08:29)
[2022-03-07] MEDS: levETIRAcetam 500 MG/5 ML VIAL SLOW IVP SCH ×2 (08:29→20:47)
[2022-03-07] MEDS: Amlodipine 5 MG TAB PO SCH ×2 (08:29→20:44)
[2022-03-07] MEDS: Tacrolimus 1 MG CAP PO SCH ×2 (08:37→20:46)
[2022-03-07] MEDS: Morphine ER 30 MG TAB PO SCH ×2 (08:43→20:42)
[2022-03-07] MEDS: Ondansetron PF 4 MG/2 ML Vial IVP PRN (08:47)
[2022-03-07] MEDS ORDERED: cloNIDine 0.1mg/24 Hour PATCH TD SCH ×2 (09:00)
[2022-03-07] MEDS ORDERED: Gabapentin 100 MG CAP PO SCH (12:45)
[2022-03-07] MEDS ORDERED: Loperamide HCl 2 MG CAP PO SCH (12:45)
[2022-03-07] MEDS: niCARdipine 25 MG in Sodium Chloride 0.9% 250 ML 250 ML IVPB PRN (13:34)
[2022-03-07] MEDS: Loperamide HCl 2 MG CAP PO PRN (20:45)
[2022-03-07] MEDS: Gabapentin 100 MG CAP PO SCH (20:46)
[2022-03-08] MEDS: HYDROcodone/Acetaminophen 10/325 mg Tablet PO PRN ×4 (00:03→16:23)
[2022-03-08] MEDS: Loperamide HCl 2 MG CAP PO PRN ×3 (01:51→16:21)
[2022-03-08] MEDS: niCARdipine 25 MG in Sodium Chloride 0.9% 250 ML 250 ML IVPB PRN (02:59)
[2022-03-08] MEDS: NS 0.9% w/ 20 MEQ KCL 1,000 ML/1,000 ML BAG IV SCH ×2 (03:02→14:49)
[2022-03-08 03:39] LABS: Hemoglobin 8.7 g/dL (12.0-16.0); Mean Corpuscular HGB CONC 33.1 g/dL (32.0-36.0); Mean Corpuscular Hemoglobin 30.7 pg (27.0-31.0); Mean Corpuscular Volume 92.9 fl (78.0-98.0); Mean Platelet Volume 12.9 fL (7.4-10.4); Platelet Count 20 10x3/uL (130-400); RBC Distribution Width 17.8 % (11.5-14.5); Red Blood Cell (RBC) Count 2.83 mill/uL (4.20-5.40)
[2022-03-08 03:40] LABS: Band 8 % (5-11); Hypochromia SLIGHT = 6-15 cells (100X) (0-5/hpf); Lymphocytes 48 % (21-51); MDiff Complete? YES; Neutrophil 40 % (42-75); Platelet Morphology Comment Appears Decreased; Reactive Lymphocytes 4 % (0-10)
[2022-03-08 03:57] LABS: Anion Gap 9 mmol/L (10-20); BUN (Urea Nitrogen) 45 mg/dL (7.0-18.7); Calc. Creatinine Clearance 24 mL/min (70-130); Calcium 7.3 mg/dL (7.8-10.44); Carbon Dioxide 20 mmol/L (22-29); Chloride 104 mmol/L (98-107); Estimated GFR 24; Glucose 89 mg/dL (70-105); Potassium 4.4 mmol/L (3.5-5.1); Sodium 129 mmol/L (136-145)
[2022-03-08] MEDS: Gabapentin 100 MG CAP PO SCH ×3 (08:11→20:43)
[2022-03-08] MEDS: Amlodipine 5 MG TAB PO SCH (09:27)
[2022-03-08] MEDS: Metoprolol Tartrate 50 MG TAB PO SCH ×2 (09:27→20:42)
[2022-03-08] MEDS: levETIRAcetam 500 MG/5 ML VIAL SLOW IVP SCH ×2 (09:27→20:44)
[2022-03-08] MEDS: hydrALAZINE 25 MG TAB PO SCH ×4 (09:27→20:42)
[2022-03-08] MEDS: Sertraline 100 MG TAB PER TUBE SCH (09:28)
[2022-03-08] MEDS: Pantoprazole 40 MG VIAL IVP SCH (09:28)
[2022-03-08] MEDS: Morphine ER 30 MG TAB PO SCH ×2 (09:29→20:33)
[2022-03-08] MEDS: Tacrolimus 1 MG CAP PO SCH ×2 (10:48→20:42)
[2022-03-08] MEDS: Labetalol HCl 100 MG/20 ML VIAL SLOW IVP PRN (11:04)
[2022-03-08] MEDS ORDERED: Magnevist 469MG/ML 20 ML VIAL ONE (12:18)
[2022-03-08] MEDS ORDERED: NIFEdipine XL 60 MG TAB PO SCH (14:30)
[2022-03-09] MEDS: HYDROcodone/Acetaminophen 10/325 mg Tablet PO PRN ×3 (01:43→12:26)
[2022-03-09] MEDS: NS 0.9% w/ 20 MEQ KCL 1,000 ML/1,000 ML BAG IV SCH (01:47)
[2022-03-09 06:07] LABS: Anion Gap 11 mmol/L (10-20); BUN (Urea Nitrogen) 51 mg/dL (7.0-18.7); Calc. Creatinine Clearance 22 mL/min (70-130); Calcium 7.9 mg/dL (7.8-10.44); Carbon Dioxide 18 mmol/L (22-29); Chloride 105 mmol/L (98-107); Estimated GFR 22; Glucose 88 mg/dL (70-105); Potassium 5.4 mmol/L (3.5-5.1); Sodium 129 mmol/L (136-145)
[2022-03-09] MEDS: Sodium Chloride 0.9% 1,000 ML IV SCH ×3 (07:24→20:17)
[2022-03-09 07:56] LABS: #Lymphocytes 0.9 thou/uL (1.20-3.40); #Monocytes 0.1 thou/uL (0.11-0.59); #Neutrophils 0.8 thou/uL (1.40-6.50); %Eosinophils 1.3 % (0.0-10.0); %Lymphocytes 47.3 % (21.0-51.0); %Monocytes 5.9 % (0.0-10.0); %Neutrophils 45.6 % (42.0-75.0); Hemoglobin 8.3 g/dL (12.0-16.0); Mean Corpuscular HGB CONC 32.5 g/dL (32.0-36.0); Mean Corpuscular Hemoglobin 30.7 pg (27.0-31.0); Mean Corpuscular Volume 94.4 fl (78.0-98.0); Mean Platelet Volume 16.4 fL (7.4-10.4); Platelet Count 11 10x3/uL (130-400); RBC Distribution Width 17.9 % (11.5-14.5); Red Blood Cell (RBC) Count 2.72 mill/uL (4.20-5.40); White Blood Cell (WBC) Count 1.8 10x3/uL (4.8-10.8)
[2022-03-09 07:57] LABS: MDiff Complete? YES; Polychromasia SLIGHT = 2-3 cells (100X) (0-2/hpf)
[2022-03-09] MEDS: levETIRAcetam 500 MG/5 ML VIAL SLOW IVP SCH ×2 (10:05→20:02)
[2022-03-09] MEDS: Morphine ER 30 MG TAB PO SCH ×2 (10:05→20:03)
[2022-03-09] MEDS: Metoprolol Tartrate 50 MG TAB PO SCH ×2 (10:06→20:03)
[2022-03-09] MEDS: NIFEdipine XL 60 MG TAB PO SCH (10:06)
[2022-03-09] MEDS: Sertraline 100 MG TAB PER TUBE SCH (10:06)
[2022-03-09] MEDS: Gabapentin 100 MG CAP PO SCH ×3 (10:06→20:03)
[2022-03-09] MEDS: Tacrolimus 1 MG CAP PO SCH ×2 (10:07→20:03)
[2022-03-09] MEDS: Fluconazole 100 MG TAB PO SCH (10:07)
[2022-03-09 10:14] LABS: Tacrolimus 5.5 ng/mL (2.0-20.0)
[2022-03-09] MEDS: Acetaminophen 325 MG TAB PO PRN (14:19)
[2022-03-09] MEDS: Loperamide HCl 2 MG CAP PO PRN (20:17)
[2022-03-10] MEDS: HYDROcodone/Acetaminophen 10/325 mg Tablet PO PRN ×2 (00:49→13:17)
[2022-03-10] MEDS: Sodium Chloride 0.9% 1,000 ML IV SCH ×4 (02:49→20:30)
[2022-03-10 06:30] LABS: #Lymphocytes 0.8 thou/uL (1.20-3.40); #Monocytes 0.1 thou/uL (0.11-0.59); %Eosinophils 0.9 % (0.0-10.0); %Lymphocytes 41.4 % (21.0-51.0); %Monocytes 7.5 % (0.0-10.0); %Neutrophils 50.3 % (42.0-75.0); Mean Corpuscular Hemoglobin 30.6 pg (27.0-31.0); Mean Corpuscular Volume 92.6 fl (78.0-98.0); Mean Platelet Volume 13.5 fL (7.4-10.4); Platelet Count 16 10x3/uL (130-400); RBC Distribution Width 17.6 % (11.5-14.5); Red Blood Cell (RBC) Count 2.61 mill/uL (4.20-5.40); White Blood Cell (WBC) Count 1.9 10x3/uL (4.8-10.8)
[2022-03-10 06:31] LABS: Anion Gap 11 mmol/L (10-20); BUN (Urea Nitrogen) 48 mg/dL (7.0-18.7); Calc. Creatinine Clearance 22 mL/min (70-130); Carbon Dioxide 17 mmol/L (22-29); Chloride 107 mmol/L (98-107); Estimated GFR 21; Glucose 88 mg/dL (70-105); Potassium 5.1 mmol/L (3.5-5.1); Sodium 130 mmol/L (136-145)
[2022-03-10] MEDS: Morphine ER 30 MG TAB PO SCH ×2 (09:43→21:45)
[2022-03-10] MEDS ORDERED: NIFEdipine XL 30 MG TAB PO SCH (09:45)
[2022-03-10] MEDS: Gabapentin 100 MG CAP PO SCH ×3 (09:46→21:45)
[2022-03-10] MEDS: Metoprolol Tartrate 50 MG TAB PO SCH ×2 (09:46→21:45)
[2022-03-10] MEDS: Sertraline 100 MG TAB PER TUBE SCH (09:47)
[2022-03-10] MEDS: Fluconazole 100 MG TAB PO SCH (09:47)
[2022-03-10] MEDS: levETIRAcetam 500 MG/5 ML VIAL SLOW IVP SCH ×2 (09:49→21:45)
[2022-03-10] MEDS: Tacrolimus 1 MG CAP PO SCH ×2 (09:49→21:45)
[2022-03-10] MEDS: Loperamide HCl 2 MG CAP PO PRN (10:06)
[2022-03-10] MEDS: NIFEdipine XL 60 MG TAB PO SCH (13:05)
[2022-03-10] MEDS ORDERED: Calcium Carbonate 500 MG ChewTAB PO PRN (13:25)
[2022-03-11 04:14] LABS: #Lymphocytes 0.8 thou/uL (1.20-3.40); #Monocytes 0.2 thou/uL (0.11-0.59); #Neutrophils 1.2 thou/uL (1.40-6.50); %Basophils 0.4 % (0.0-1.0); %Eosinophils 1.3 % (0.0-10.0); %Lymphocytes 36.4 % (21.0-51.0); %Neutrophils 51.9 % (42.0-75.0); Hemoglobin 7.6 g/dL (12.0-16.0); Mean Corpuscular HGB CONC 32.2 g/dL (32.0-36.0); Mean Corpuscular Hemoglobin 30.4 pg (27.0-31.0); Mean Corpuscular Volume 94.5 fl (78.0-98.0); Mean Platelet Volume 10.9 fL (7.4-10.4); Platelet Count 43 10x3/uL (130-400); Red Blood Cell (RBC) Count 2.51 mill/uL (4.20-5.40); White Blood Cell (WBC) Count 2.2 10x3/uL (4.8-10.8)
[2022-03-11 04:21] LABS: Phosphorus 3.9 mg/dL (2.3-4.7)
[2022-03-11 04:27] LABS: Anion Gap 11 mmol/L (10-20); BUN (Urea Nitrogen) 47 mg/dL (7.0-18.7); Calc. Creatinine Clearance 21 mL/min (70-130); Carbon Dioxide 16 mmol/L (22-29); Chloride 108 mmol/L (98-107); Potassium 4.8 mmol/L (3.5-5.1); Sodium 130 mmol/L (136-145)
[2022-03-11 04:28] LABS: Estimated GFR 20; Glucose 82 mg/dL (70-105); Magnesium 1.2 mg/dL (1.6-2.6)
[2022-03-11] MEDS ORDERED: Furosemide 40 MG/4 ML VIAL SLOW IVP SCH ×2 (09:00→13:55)
[2022-03-11] MEDS: Cefepime 1 GM in Sodium Chloride 0.9% 100 ML IVPB SCH (10:07)
[2022-03-11] MEDS: Morphine ER 30 MG TAB PO SCH ×2 (10:09→21:28)
[2022-03-11] MEDS: Fluconazole 100 MG TAB PO SCH (10:09)
[2022-03-11] MEDS: Sertraline 100 MG TAB PER TUBE SCH (10:10)
[2022-03-11] MEDS: levETIRAcetam 500 MG/5 ML VIAL SLOW IVP SCH ×2 (10:10→21:29)
[2022-03-11] MEDS: NIFEdipine XL 30 MG TAB PO SCH (10:12)
[2022-03-11] MEDS: Gabapentin 100 MG CAP PO SCH ×3 (10:13→21:28)
[2022-03-11] MEDS: Tacrolimus 1 MG CAP PO SCH ×2 (10:13→21:28)
[2022-03-11] MEDS: Metoprolol Tartrate 50 MG TAB PO SCH (10:15)
[2022-03-11] MEDS: Sodium Chloride 0.9% 1,000 ML IV SCH (10:15)
[2022-03-11] MEDS ORDERED: Magnesium 2 GM/50 ML(in water) 2 GM in Premix Bag 1 BAG IVPB SCH (11:45)
[2022-03-11] MEDS: Furosemide 40 MG/4 ML VIAL SLOW IVP SCH (15:25)
[2022-03-11] MEDS: HYDROcodone/Acetaminophen 10/325 mg Tablet PO PRN (15:58)
[2022-03-11] MEDS: Sodium Bicarb 50 MEQ/50 ML VIAL IVP SCH (18:02)
[2022-03-11] MEDS: Ondansetron PF 4 MG/2 ML Vial IVP PRN (18:40)
[2022-03-11] MEDS: Metoprolol Tartrate 25 MG TAB PO SCH (21:29)
[2022-03-12] MEDS: Sodium Bicarb 50 MEQ/50 ML VIAL IVP SCH ×3 (00:06→12:15)
[2022-03-12 04:28] LABS: Phosphorus 4.1 mg/dL (2.3-4.7)
[2022-03-12 04:29] LABS: Anion Gap 8 mmol/L (10-20); BUN (Urea Nitrogen) 47 mg/dL (7.0-18.7); Calc. Creatinine Clearance 20 mL/min (70-130); Carbon Dioxide 20 mmol/L (22-29); Chloride 109 mmol/L (98-107); Estimated GFR 19; Glucose 88 mg/dL (70-105); Magnesium 1.8 mg/dL (1.6-2.6); Potassium 4.7 mmol/L (3.5-5.1); Sodium 132 mmol/L (136-145)
[2022-03-12 05:08] LABS: Anisocytosis SLIGHT = 6-15 cells (100X) (0-5/hpf); Band 4 % (5-11); Hemoglobin 7.4 g/dL (12.0-16.0); Lymphocytes 39 % (21-51); MDiff Complete? YES; Mean Corpuscular HGB CONC 32.5 g/dL (32.0-36.0); Mean Corpuscular Hemoglobin 30.6 pg (27.0-31.0); Mean Corpuscular Volume 94.2 fl (78.0-98.0); Mean Platelet Volume 9.2 fL (7.4-10.4); Monocytes 13 % (0-10); Neutrophil 44 % (42-75); Nucleated RBC 2 % (0); Platelet Count 84 10x3/uL (130-400); Platelet Morphology Comment Appears Decreased; Tear Drops SLIGHT = 2-5 cells (100X) (0-1/hpf)
[2022-03-12] MEDS: Furosemide 40 MG/4 ML VIAL SLOW IVP SCH ×2 (06:18→15:15)
[2022-03-12] MEDS: Cefepime 1 GM in Sodium Chloride 0.9% 100 ML IVPB SCH (08:34)
[2022-03-12] MEDS: Tacrolimus 1 MG CAP PO SCH ×2 (08:35→20:55)
[2022-03-12] MEDS: Sertraline 100 MG TAB PER TUBE SCH (08:35)
[2022-03-12] MEDS: Gabapentin 100 MG CAP PO SCH ×3 (08:35→20:55)
[2022-03-12] MEDS: Fluconazole 100 MG TAB PO SCH (08:35)
[2022-03-12] MEDS: levETIRAcetam 500 MG/5 ML VIAL SLOW IVP SCH ×2 (08:35→21:56)
[2022-03-12] MEDS: Morphine ER 30 MG TAB PO SCH ×2 (08:36→20:52)
[2022-03-12] MEDS: NIFEdipine XL 30 MG TAB PO SCH (08:36)
[2022-03-12] MEDS: Metoprolol Tartrate 25 MG TAB PO SCH ×2 (08:36→21:13)
[2022-03-12 11:41] VITALS: BP 131/96
[2022-03-12] MEDS: Albumin 25% 25 GM/100 ML BOT IVPB SCH ×2 (12:15→19:42)
[2022-03-12 14:01] VITALS: BMI 22.3
[2022-03-12] MEDS ORDERED: Morphine 2 MG/ML VIAL SLOW IVP PRN (15:18)
[2022-03-12] MEDS ORDERED: Vancomycin Dose by Levels Sliding Scale (Wt <71) FS SCH (16:00)
[2022-03-12] MEDS: Nicotine 14 MG PATCH TD SCH (16:08)
[2022-03-12] MEDS ORDERED: Vancomycin 1.5 GRAM/300 ML BAG 1.5 GM in Premix Bag 1 BAG IVPB SCH (16:30)
[2022-03-13] MEDS: Albumin 25% 25 GM/100 ML BOT IVPB SCH ×2 (00:16→05:47)
[2022-03-13 05:20] LABS: Anion Gap 13 mmol/L (10-20); BUN (Urea Nitrogen) 47 mg/dL (7.0-18.7); Calc. Creatinine Clearance 20 mL/min (70-130); Calcium 8.2 mg/dL (7.8-10.44); Carbon Dioxide 20 mmol/L (22-29); Chloride 108 mmol/L (98-107); Estimated GFR 17; Glucose 83 mg/dL (70-105); Magnesium 1.8 mg/dL (1.6-2.6); Phosphorus 4.3 mg/dL (2.3-4.7); Potassium 4.8 mmol/L (3.5-5.1); Sodium 136 mmol/L (136-145)
[2022-03-13 05:44] LABS: Band 8 % (5-11); Hemoglobin 6.2 g/dL (12.0-16.0); Lymphocytes 36 % (21-51); MDiff Complete? YES; Mean Corpuscular HGB CONC 33.3 g/dL (32.0-36.0); Mean Corpuscular Hemoglobin 31.6 pg (27.0-31.0); Mean Platelet Volume 8.2 fL (7.4-10.4); Monocytes 16 % (0-10); Neutrophil 40 % (42-75); Platelet Count 122 10x3/uL (130-400); RBC Distribution Width 17.7 % (11.5-14.5); Red Blood Cell (RBC) Count 1.96 mill/uL (4.20-5.40)
[2022-03-13] MEDS: Furosemide 40 MG/4 ML VIAL SLOW IVP SCH ×3 (07:09→23:19)
[2022-03-13] MEDS: levETIRAcetam 500 MG/5 ML VIAL SLOW IVP SCH ×2 (09:02→21:00)
[2022-03-13] MEDS: Cefepime 1 GM in Sodium Chloride 0.9% 100 ML IVPB SCH (09:02)
[2022-03-13] MEDS: Fluconazole 100 MG TAB PO SCH (09:02)
[2022-03-13] MEDS: Metoprolol Tartrate 25 MG TAB PO SCH ×2 (09:03→21:00)
[2022-03-13] MEDS: Gabapentin 100 MG CAP PO SCH ×3 (09:03→21:00)
[2022-03-13] MEDS: NIFEdipine XL 30 MG TAB PO SCH (09:03)
[2022-03-13] MEDS: Sertraline 100 MG TAB PER TUBE SCH (09:03)
[2022-03-13] MEDS: Tacrolimus 1 MG CAP PO SCH ×2 (09:04→23:19)
[2022-03-13] MEDS: Morphine ER 30 MG TAB PO SCH ×2 (09:34→21:00)
[2022-03-13] MEDS ORDERED: Lorazepam 1 MG TAB PO PRN (12:32)
[2022-03-13] MEDS: HYDROcodone/Acetaminophen 10/325 mg Tablet PO PRN (13:02)
[2022-03-13] MEDS ORDERED: Metolazone 5 MG TAB PO SCH (14:00)
[2022-03-13] MEDS: Nicotine 14 MG PATCH TD SCH (14:32)
[2022-03-13 16:08] LABS: Vancomycin, Random 22.7 ug/mL (See Comment)
[2022-03-14 04:55] LABS: Anion Gap 14 mmol/L (10-20); BUN (Urea Nitrogen) 52 mg/dL (7.0-18.7); Calc. Creatinine Clearance 21 mL/min (70-130); Calcium 8.3 mg/dL (7.8-10.44); Carbon Dioxide 19 mmol/L (22-29); Chloride 108 mmol/L (98-107); Estimated GFR 15; Glucose 79 mg/dL (70-105); Potassium 5.4 mmol/L (3.5-5.1); Sodium 136 mmol/L (136-145)
[2022-03-14 05:08] LABS: Anisocytosis SLIGHT = 6-15 cells (100X) (0-5/hpf); Band 9 % (5-11); Hemoglobin 8.5 g/dL (12.0-16.0); Lymphocytes 20 % (21-51); MDiff Complete? YES; Macrocytosis SLIGHT = 6-15 cells (100X) (0-5/hpf); Mean Corpuscular HGB CONC 33.3 g/dL (32.0-36.0); Mean Corpuscular Hemoglobin 30.8 pg (27.0-31.0); Mean Corpuscular Volume 92.4 fl (78.0-98.0); Mean Platelet Volume 8.6 fL (7.4-10.4); Monocytes 12 % (0-10); Neutrophil 59 % (42-75); Platelet Count 175 10x3/uL (130-400); RBC Distribution Width 18.8 % (11.5-14.5); Red Blood Cell (RBC) Count 2.77 mill/uL (4.20-5.40); White Blood Cell (WBC) Count 4.6 10x3/uL (4.8-10.8)
[2022-03-14] MEDS: Furosemide 40 MG/4 ML VIAL SLOW IVP SCH (07:02)
[2022-03-14 07:22] VITALS: TEMP 97
[2022-03-14] MEDS ORDERED: Metolazone 5 MG TAB PO SCH (08:30)
[2022-03-14] MEDS: Cefepime 1 GM in Sodium Chloride 0.9% 100 ML IVPB SCH (08:47)
[2022-03-14] MEDS: Metoprolol Tartrate 25 MG TAB PO SCH (08:47)
[2022-03-14] MEDS: Tacrolimus 1 MG CAP PO SCH (08:48)
[2022-03-14] MEDS: Nicotine 14 MG PATCH TD SCH (08:49)
[2022-03-14] MEDS: Sertraline 100 MG TAB PER TUBE SCH (08:49)
[2022-03-14] MEDS: Fluconazole 100 MG TAB PO SCH (08:50)
[2022-03-14] MEDS ORDERED: Furosemide 100 MG/10 ML VIAL SLOW IVP SCH (09:00)
[2022-03-14] MEDS ORDERED: Furosemide 20 MG/2 ML VIAL SLOW IVP SCH (09:00)
[2022-03-14] MEDS ORDERED: Morphine 4 MG/ML VIAL SLOW IVP PRN (09:00)
[2022-03-14] MEDS: Gabapentin 100 MG CAP PO SCH (09:08)
[2022-03-14] MEDS: levETIRAcetam 500 MG/5 ML VIAL SLOW IVP SCH (09:08)
[2022-03-14] MEDS: Morphine ER 30 MG TAB PO SCH (09:19)
== END 2022-03-14 09:50 | disposition hospice, home (50) | DRG 871 ==
LOC: ERS 02:53 → CCU 03:10 → EEVIPCON 03:10 → IMCU/EMU 03-09 05:45
PROVIDERS: ADMIT Hospitalist; ATTEND Hospitalist
PROC: 5A1945Z Respiratory Ventilation, 24-96 Consecutive Hours (ICD-10-PCS; principal; 2022-03-02)
PROC: 3E03329 Introduction of Other Anti-infective into Peripheral Vein, Percutaneous Approach (ICD-10-PCS; 2022-03-02)
PROC: 30233N1 Transfusion of Nonautologous Red Blood Cells into Peripheral Vein, Percutaneous Approach (ICD-10-PCS; 2022-03-02)
DX: A41.9 Sepsis, unspecified organism (principal); D61.810 Antineoplastic chemotherapy induced pancytopenia; G93.41 Metabolic encephalopathy; J18.9 Pneumonia, unspecified organism; J96.01 Acute respiratory failure with hypoxia; I46.9 Cardiac arrest, cause unspecified; E43 Unspecified severe protein-calorie malnutrition; J69.0 Pneumonitis due to inhalation of food and vomit; N17.0 Acute kidney failure with tubular necrosis; C78.02 Secondary malignant neoplasm of left lung; E87.1 Hypo-osmolality and hyponatremia; T86.12 Kidney transplant failure; C78.01 Secondary malignant neoplasm of right lung; C40.21 Malignant neoplasm of long bones of right lower limb; E87.20 Acidosis, unspecified; D84.81 Immunodeficiency due to conditions classified elsewhere; B37.49 Other urogenital candidiasis; Z51.5 Encounter for palliative care; Z66 Do not resuscitate; Z20.822 Contact with and (suspected) exposure to COVID-19; R65.20 Severe sepsis without septic shock; R13.12 Dysphagia, oropharyngeal phase; M32.9 Systemic lupus erythematosus, unspecified; F17.210 Nicotine dependence, cigarettes, uncomplicated; Y83.8 Other surgical procedures as the cause of abnormal reaction of the patient, or of later complication, without mention of misadventure at the time of the procedure; I12.9 Hypertensive chronic kidney disease with stage 1 through stage 4 chronic kidney disease, or unspecified chronic kidney disease; N18.30 Chronic kidney disease, stage 3 unspecified; G93.89 Other specified disorders of brain; F41.9 Anxiety disorder, unspecified; D63.8 Anemia in other chronic diseases classified elsewhere; T45.1X5A Adverse effect of antineoplastic and immunosuppressive drugs, initial encounter; E83.42 Hypomagnesemia; E87.8 Other disorders of electrolyte and fluid balance, not elsewhere classified; E87.5 Hyperkalemia; Z88.0 Allergy status to penicillin; Z88.8 Allergy status to other drugs, medicaments and biological substances; Z79.899 Other long term (current) drug therapy; Z68.25 Body mass index [BMI] 25.0-25.9, adult
CPT/HCPCS: 36415; 36416; 36430; 36600; 51702; 70450; 70553; 71045; 71260; 72125; 74177; 76775; 80048; 80053; 80197; 80202; 81001; 81003; 81015; 82040; 82553; 82570; 82805; 83605; 83735; 84100; 84145; 84300; 84484; 84703; 85025; 85610; 85730; 86850; 86900; 86901; 86922; 87040; 87086; 87324; 87449; 87811; 93005; 93010; 93306; 94002; 94003; 94660; 95706; 95816; 95819; 95957; 96374; 96375; 97139; A9579; C9113; J0692; J1650; J1940; J1953; J2270; J2405; J2704; J3010; J3370; J3370-JW; J3475; J3480; J3490; J7042; J7050; J7070; J7507; P9016; P9047; Q9967; U0002